=== PATIENT | female | born 1990 | race Caucasian/White ===

== ENCOUNTER 2018-06-28 09:41 | Emergency (ER) | payer OTHER, MEDICAID, SELFPAY ==
[2018-06-28 09:42] VITALS: BP 159/105; PULSE 102; RESP 16; TEMP 36.5; O2SAT 98; BMI 43.5
--- NOTE | 2018-06-28 09:57 | ED.VISSUMM ---
- ER Visit Summary Date of Service: 06/28/18 Chief Complaint: Right flank pain History of Present Illness: The patient is a [address] Cuellar [facility] She is a at 12 weeks 5 days. She reports she has the abrupt onset of right flank pain at 6:00 this morning. Is a sharp pain Zeta 10 severity. It is worsened by nothing and relieved by nothing. She has had nausea without vomiting. No diarrhea. Her last bowel was today. No melena or hematochezia. No dysuria or frequency. No vaginal bleeding or discharge. Physical Examination: Vitals: Stable. Afebrile. General: Well-nourished and well-developed. Head: Normocephalic atraumatic. Neck: Supple, no lymphadenopathy. No JVD. Nontender. Cardiovascular: Regular rate and rhythm. No murmurs. Respiratory: No respiratory distress. Clear to auscultation bilaterally. Abdominal: Soft, nontender, nondistended, normal bowel sounds. No guarding, rebound, or peritoneal signs. Gravid uterus. Back: Nontender. No CVA tenderness. Extremities: Nontender, no edema. Skin: Normal color, no rash. Neurologic: Alert and oriented ?3. Cranial nerves II through XII are intact. Normal strength and sensation. Psych: Normal affect. Test Results: UA has blood, ketones. Micro shows 5-10 white blood cells and 5-10 red blood cells. 1+ bacteria. Emergency Department Course and Treatment: Patient had an IV placed. She was given morphine and Zofran IV. I discussed the options for diagnosis of a kidney stone. Patient is hesitant to have a CT at this time. Treatment Plan: I discussed the patient with Dr. Maradiaga. She will be discharged with instructions to follow-up Dr. Stoll in 1 week if she has not passed the stone. Follow-up Dr. Maradiaga later on this week for repeat examination. She does understand that if she does not pass the stone she can return at any time to obtain a CT. She will be discharged with Percocet and Zofran. Disposition: To home in improved and stable condition. Impression: 1. Clinical right ureterolithiasis. 2. First trimester . This note was generated with 140 Proofation software. It may contain incorrect words, spelling, and punctuation that were not noted in review of the chart prior to signing ED Disposition - Plan for ED Patient: Disposition: Home or Assisted Living Chief Complaint: Flank Pain Instructions: ED Stone Renal W Colic Prescriptions: Oxycodone HCl/Acetaminophen [Percocet 5/325] 1 tablet PO Q6H PRN PRN 5 Days #20 tablet PRN Reason: Pain Ondansetron [Zofran Odt] 4 mg PO Q8H PRN PRN #10 tablet PRN Reason: Nausea Referrals: Palomo Maradiaga [STAFF PHYSICIAN] - 3-5 Days if not improving Gavin Stoll MD [STAFF PHYSICIAN] - 1 Week if not improving
[2018-06-28] MEDS: Ondansetron 4 MG/2 ML Vial IV ×2 (10:12→14:12)
[2018-06-28] MEDS: Morphine 4 MG/ML Syringe IV ×2 (10:12→12:04)
[2018-06-28] MEDS: 0.9% Normal Saline 1,000 ML 250 ML IV (10:12)
[2018-06-28 11:21] LABS: Color, Urine Yellow (Yellow); Glucose, Dipstick Normal (Normal); Ketone-Dipstick 15 mg/dl (Negative); Leukocyte Esterase-Dipstick 25 /ul (Negative); Nitrite-Dipstick Negative (Negative); Occult Blood-Urine 250 /ul (Negative); Protein-Dipstick 30 mg/dl (Negative); Specific Gravity, Urine 1.025 (1.002-1.030); Urine Bilirubin Dipstick Negative (Negative); Urine Clarity Cloudy (Clear); Urine Urobilinogen Normal (Normal)
[2018-06-28 11:28] LABS: Amorphous Sediment 1+; Bacteria 1+ /hpf (None Seen); Mucous, Urine 1+ /hpf (<or=2+); Red Blood Cells-Urine 5-10 SEEN /hpf (0-5); Squamous Epithelial Cells - UA 5-10 SEEN /hpf (5-10); White Blood Cells 0-5 SEEN /hpf (0-5)
[2018-06-28 12:28] VITALS: BP 142/86; PULSE 85; RESP 16; O2SAT 98
[2018-06-28 13:28] VITALS: BP 162/82; PULSE 90; RESP 14; TEMP 37; O2SAT 100; BMI 43.5
--- NOTE | 2018-06-28 13:47 | ED.RN ---
pt left and is back. per dr acevedo only one chart
[2018-06-28] MEDS: HYDROmorphone 1 MG/ML Syringe IV (14:11)
[2018-06-28] MEDS: 0.9% Normal Saline 1,000 ML 999 ML IV (14:12)
[2018-06-28] MEDS: Acetaminophen 500 MG Tablet 1000 MG PO (14:49)
[2018-06-28] MEDS: oxyCODONE 5 MG Tablet 10 MG PO (14:49)
[2018-06-28 15:34] VITALS: BP 150/95; PULSE 85; RESP 18; O2SAT 99
== END 2018-06-28 16:02 | disposition home or self-care (01) ==
PROVIDERS: Emergency Provider Emergency Medicine
DX: O26.831 Pregnancy related renal disease, first trimester (principal); N20.1 Calculus of ureter; Z3A.12 12 weeks gestation of pregnancy; Z87.442 Personal history of urinary calculi
CPT/HCPCS: 81001; 96361; 96374; 96375; 96376; 99285; J7030; A4216; J2405

== ENCOUNTER 2018-12-30 06:50 | Inpatient (IN) | payer MEDICAID, SELFPAY ==
[2018-12-30 06:54] VITALS: BMI 46.0
[2018-12-30 07:57] LABS: Absolute Lymphocyte Count 1.62 X10^3/ul (0.83-4.51); Basophil# 0.02 X10^3/uL; Basophil% 0.2 % (0-1); Eosinophil# 0.04 X10^3/uL; Eosinophils% 0.4 % (0-5); Hematocrit 34.8 % (37-47); Hemoglobin 11.4 g/dl (12.0-15.0); Lymphocyte # 1.62 X10^3/ul (4.0); Lymphocyte % 17.8 % (19-41); Mean Corp Hgb Conc 32.8 g/gl (32-36); Mean Corpuscular Hgb 26.8 pg (27.0-32.0); Mean Corpuscular Volume 81.9 fL (81-99); Mean Platelet Vol. 11.6 fl (6.2-12.0); Monocyte# 0.37 X10^3/uL; Monocyte% 4.1 % (0-10); Neutrophil # 7.02 X10^3/uL (2.7-7.7); Neutrophil % 77.3 % (47-70); Platelet Count 219 K/mm3 (150-450); RBC Distribution Width CV 14.2 % (11.6-14.6); RBC Distribution Width SD 42.5 fl (35.1-43.9); Red Blood Count 4.25 M/mm3 (4.2-5.4); White Blood Count 9.1 K/mm3 (4.4-11.0)
[2018-12-30 07:58] LABS: POSITIVE COUNT NO; POSITIVE DIFFERENTIAL NO; POSITIVE MORPHOLOGY NO
[2018-12-30] MEDS: Lactated Ringers 1,000 ML 50 ML IV ×3 (08:52→20:53)
[2018-12-30] MEDS: Oxytocin 30 units/NS 500 ml 30 UNITS/500 ML IV.SOLN IV (08:53)
[2018-12-30] MEDS: 0.9% Normal Saline 100 ML IV.SOLN. INTRA-UTER (08:56)
--- NOTE | 2018-12-30 13:13 | PCM.HP.OB ---
History Date of Admission: 02/21/17 Final DONI: 01/05/19 Final DONI Source: US <20 weeks Gestational age: 39 Weeks and 1 Days History of this : This is a 28 year-old 3 para 2 at 39 weeks gestation with EDC of 01/05/2019 presents for induction of labor due to being multigravida and an LGA fetus. She denies any vaginal bleeding or leaking of fluid. She has had good movement. Patient has had 2 previous vaginal deliveries and her largest previous vaginal delivery was 8 pounds 14 ounces without significant complications. Her has been otherwise uncomplicated. Allergies No Known Allergies Allergy (Verified 06/28/18 09:42) Home Medications: Home Medications Prenatabs FA 1 tab PO DAILY 12/11/14 Smoking Status: Never smoker Alcohol: None Number of Fetus(es): 1 Heart Tracing: Normal baseline, moderate variability and spontaneous accelerations, category 1 upon admission. TOCO Analysis: Irregular contractions upon admission History Past Pregnancies: Past Pregnancies Delivery Date Name GA/Weeks Outcome Route Weight Infant Gender Labor Length Anesthesia Delivery Location Provider FOB Review of Systems Constitutional: Denies: Anorexia, Chills, Fever Eyes: Denies: Blurred vision Cardiovascular: Reports: Edema. Denies: Chest Pain Respiratory: Denies: Cough, Shortness of Breath Skin: Denies: Rash Hematologic/ Lymphatic: Denies: Easy Bruising, Hx of blood clot Physical Exam General: Alert, Cooperative, No apparent distress Abdomen: Soft, Non-Distended, Gravid, - - large for gestational age Extremities:: Other - 1+edema, no clonus, 1+DTRs Assessment/Plan This is a 28 year-old, 3 para 2 at 39 weeks gestation for induction of labor due to large for gestational age infant. Estimated weight clinically and by ultrasound is less than 5000 g. However we did discuss range of error inherent to these measurements. However, she did have an almost 9 pound infant in the past without complications. Pelvis is clinically adequate to expect vaginal delivery. Benefits and alternatives to induction were discussed with the patient and she desired to proceed. Will proceed with Oneil, Pitocin and artificial rupture membranes of labor. Procedure note: Upon my initial exam, Oneil catheter was placed over a stylette into the cervix under the usual sterile fashion. The balloon was inflated to 30 cc and placement over the internal loss was confirmed. Pitocin was initiated.
[2018-12-30] MEDS: Nalbuphine 10 MG/ML Ampul IV (15:40)
[2018-12-30] MEDS: fentaNYL-bupivacaine (epidural) 100 ML BAG EPIDURAL (17:40)
[2018-12-30] MEDS: Oxytocin 30 units/NS 500 ml 30 UNITS/500 ML IV.SOLN 334 UNITS IV (22:22)
[2018-12-30] MEDS: Oxytocin 30 units/NS 500 ml 30 UNITS/500 ML IV.SOLN 167 UNITS IV (22:52)
--- NOTE | 2018-12-30 22:56 | OP.PCM_ITS ---
Vaginal Delivery Maternal Presentation: Elective Induction Method of Induction: Pitocin, Oneil Bulb, Amniotomy Medical Reason for Induction: - - suspected LGA Amniotic Membrane Rupture Type: Artificial Amniotic Fluid Description: Clear Final DONI: 01/13/19 Final DONI Source: US <20 weeks Gestational age: 38 Weeks and 0 Days Date of Procedure: 12/30/18 Pre-Operative Diagnosis: 39 week multigravida, suspected LGA fetus Post-Operative Diagnosis: same Surgery/ Procedure Performed: Spontaneous Vaginal Delivery Type of Anesthesia: Epidural Description of Procedure: A vigorous male infant was delivered BARBARA over a first-degree perineal laceration. A loose nuchal cord ?1 was easily reduced. The remainder the infant was delivered with maternal pushing and gentle traction only in less than 15 seconds. The Pitocin infusion was initiated for active management of the third stage. The cord was clamped and cut after 1 minute. The was attended to by the waiting nursing staff. The placenta was delivered spontan eously and intact. The cervix and vagina were intact. The first-degree perineal laceration was repaired with 3-0 Vicryl Rapide suture with a figure of 8 suture. Sponge and needle counts were correct. A vaginal sweep was completed by me. Presentation: BARBARA Placental Delivery Description: Spontaneous Placenta Disposition: [facility] Cord Vessel Description: 3 Vessels Nuchal Cord Compression: Without compression Cord Entanglement: Around neck x 1, loose Drain: Oneil to straight drain Estimated Blood Loss: 300 Infant A gender: Male (1 minute): 8 (5 minute): 9 Episiotomy Description: None Laceration: 1st degree - perineal Medications given after delivery: IV Pitocin Complications: None
[2018-12-31] MEDS: Labetalol 100 MG Tablet PO (00:21)
--- NOTE | 2018-12-31 03:09 | NURSING ---
pt voided while taking a shower @ 0115 and states she emptied her bladder
[2018-12-31 03:40] VITALS: BP 123/62; PULSE 97; RESP 18; TEMP 36.8
[2018-12-31] MEDS: Naproxen 250 MG Tablet 500 MG PO (07:33)
--- NOTE | 2018-12-31 07:52 | PCM.PN.OB ---
Subjective: some cramping, worse w/ nursing, average lochia. No other c/o - Physical Exam General: Alert, Cooperative, No apparent distress Vital Signs Temp Pulse Resp BP 98.3 F 97 18 123/62 H 12/31/18 03:40 12/31/18 03:40 12/31/18 03:40 12/31/18 03:40 Oxygen Delivery Method Room Air Weight: 141.4 kg Body Mass Index (BMI) 46.0 Intake and Output for Last 24 Hours 12/29/18 12/30/18 12/31/18 23:59 23:59 23:59 Intake Total 2958 / 2958 Output Total 550 / 550 850 / 850 Balance 2408 / 2408 -850 / -850 Laboratory Tests Past 24 Hrs 12/30/18 12/30/18 07:20 07:20 WBC 9.1 RBC 4.25 Hgb 11.4 L Hct 34.8 L MCV 81.9 MCH 26.8 L MCHC 32.8 RDW 14.2 RDW Differential 42.5 Plt Count 219 MPV 11.6 Immature Gran % (Auto) 0.200 Neut % (Auto) 77.3 H Lymph % (Auto) 17.8 L [place] % (Auto) 4.1 Eos % (Auto) 0.4 Baso % (Auto) 0.2 Absolute Neuts (auto) 7.0 Absolute Lymphs (auto) 1.62 Total Counted Not Reportable Blood Type A POSITIVE Antibody Screen NEGATIVE Medical Necessity - Tobacco Use Smoking Status: Never smoker Assessment/Plan PPD#1 doing well likely d/c home tomorrow
[2018-12-31 08:10] VITALS: BP 132/77; PULSE 96; RESP 16; TEMP 36.6
[2018-12-31 12:00] VITALS: BP 137/69; PULSE 91; RESP 16; TEMP 35.8
[2018-12-31 16:00] VITALS: BP 136/84; PULSE 93; RESP 16; TEMP 36.2
[2018-12-31 20:00] VITALS: BP 135/86; PULSE 90; RESP 16; TEMP 36.8
[2019-01-01 02:00] VITALS: BP 129/74; PULSE 82; RESP 16; TEMP 36.7
[2019-01-01 07:35] VITALS: BP 136/85; PULSE 79; RESP 16; TEMP 36.2
[2019-01-01] MEDS: Senna/Docusate Sodium 1 Tablet PO (09:27)
--- NOTE | 2019-01-01 11:11 | PCM.PN.OB ---
Subjective: Pain well controlled, average lochia, no N/V. Denies RANDOLPH, epigastric pain or visual changes - Physical Exam General: Alert, Cooperative, No apparent distress Abdomen: - - fundus firm, mildly tender, appropriately so Extremities: Edema - 2+, No clonus, 2+ DTRs Vital Signs Temp Pulse Resp BP 97.1 F L 79 16 136/85 H 01/01/19 07:35 01/01/19 07:35 01/01/19 07:35 01/01/19 07:35 Oxygen Delivery Method Room Air Weight: 141.4 kg Body Mass Index (BMI) 46.0 Intake and Output for Last 24 Hours 12/30/18 12/31/18 01/01/19 23:59 23:59 23:59 Intake Total 2958 / 2958 Output Total 550 / 550 950 / 950 Balance 2408 / 2408 -950 / -950 Medical Necessity - Tobacco Use Smoking Status: Never smoker Assessment/Plan day #2 status post spontaneous vaginal delivery of LGA term . is doing well and breast-feeding. Is ready for discharge home today. Patient is doing well. She has had some borderline blood pressures, but no other symptoms of preeclampsia. Blood pressures have not warranted additional therapy since a single dose of labetalol p.o. At this point, I discussed with the patient's symptoms of preeclampsia with severe features and she is to call or return to the hospital for any symptoms or concerns. Patient is comfortable with this. Follow-up in the office in 1 week for blood pressure check and visit or as needed.
--- NOTE | 2019-01-01 11:16 | DCINST_ITS ---
Discharge Diet: No Restrictions Discharge Activity: Return to Normal Activity, May not drive while taking narcotic pain medications., May Shower May resume sexual activity in: 4-6 weeks Additional Activity Instructions:: Nothing in the vagina for 4-6 weeks. You may return to work/school in 6 weeks. Call your doctor if your incision/area has: Continuous Slow Oozing, Sudden Increased Bleeding, Increased Pain/ Swelling, Increased Redness, Foul Smelling Discharge Additional Instructions: If you experience any of the following, contact your healthcare provider. * Bleeding that soaks a pad every hour for 2 hours * Fever 100.4 or higher * Unrelieved incision or abdominal pain * Swelling, redness, discharge or bleeding from your incision or episiotomy site * Your incision begins to separate * Problems urinating (including inability to urinate or burning while urinating). * Visual changes * Severe headache * Flu-like symptoms * Pain or redness in one of both of your breasts * Pain, warmth, tenderness or swelling in your legs, especially the calf area * Frequent nausea and vomiting * Symptoms of depression or anxiety If you experience any of the following, call 911 or go to the nearest Emergency Room. * Chest pain * Problems breathing * Seizure activity * Partial or complete paralysis of a body part, slurred speech, weakness or drooping of the face, or a sudden inability to walk or hold your balance Allergies/Adverse Reactions: Allergies No Known Allergies Allergy (Verified 06/28/18 09:42) Medications to take at Discharge Prenatabs FA 1 tab PO DAILY 12/11/14 Docusate Sodium [Colace] 100 mg PO BID PRN PRN #30 capsule 01/01/19 The following prescriptions were given: Docusate Sodium [Colace] 100 mg PO BID PRN PRN #30 capsule PRN Reason: Constipation Please Follow Up With: Diamante Carmichael MD - [phone] When: Call to make an appointment with your doctor in 1 week and 6 weeks or as needed. Primary Care Physician: Care Physician,No Primary [Primary Care Provider] - Test Results: Test results from this visit will be discussed in further detail at your follow- up appointment, if applicable.
--- NOTE | 2019-01-05 17:04 | NURSING ---
No answer on follow up phone call. Left voice mail.
== END 2019-01-01 11:23 | disposition home or self-care (01) | DRG 807 ==
PROVIDERS: Admitting Provider Obstetrics & Gynecology; Referring Provider Obstetrics & Gynecology; Visit Provider Obstetrics & Gynecology
DX: O36.63X0 Maternal care for excessive fetal growth, third trimester, not applicable or unspecified (principal); Z37.0 Single live birth; O69.81X0 Labor and delivery complicated by cord around neck, without compression, not applicable or unspecified; O70.0 First degree perineal laceration during delivery; Z3A.39 39 weeks gestation of pregnancy; O16.5 Unspecified maternal hypertension, complicating the puerperium
CPT/HCPCS: 59025; 59050; 85025; 86850; 86900; 99218; J7120; G0378

== ENCOUNTER 2020-05-19 14:13 | Observation (INO) | payer OTHER, MEDICAID, SELFPAY ==
[2020-05-19] VITALS (12 sets, daily range): BP systolic 116–159; BP diastolic 71–99; PULSE 75–121; RESP 16–20; TEMP 36.3–37; O2SAT 95–100; BMI 39.1; BMI 38.0; BMI 38.1
--- NOTE | 2020-05-19 14:29 | CT_ITS ---
STUDY: CT ABDOMEN AND PELVIS WITHOUT CONTRAST REASON FOR EXAM: Female, 29 years old. LEFT FLANK PAIN -- HX-KIDNEY STONES RADIATION DOSAGE (If Supplied By Facility): CTDIvol = ( 21.97 ) mGy, DLP = ( 1196.60 ) mGycm TECHNIQUE: Transaxial images were obtained from the dome of the diaphragm to the symphysis pubis without oral contrast, and without intravenous contrast. Sagittal and coronal images were reconstructed. Individualized dose optimization techniques were used for this CT. COMPARISON: None. FINDINGS: Lung bases demonstrate no evidence for consolidative process. No pericardial effusion. Gallbladder is nondistended. No focal hepatic lesions on this noncontrast study. Adrenal glands and pancreas are within normal limits. No discrete hepatic lesions. Moderate left-sided hydronephrosis with an obstructing stone in the left ureteropelvic junction measuring up to 1.3 cm in transverse dimension. There is dilatation of the mid to distal left ureter also seen. Left-sided nephrolithiasis. Right kidney demonstrates no evidence for hydronephrosis. The uterus appears retroverted and prominent in caliber possibly fibroids however not well characterized. Prominent right adnexa. No evidence for acute appendicitis or diverticulitis. Mild degenerative changes at L5-S1 level IMPRESSION: Moderate left-sided hydronephrosis and approximately 1.3 cm stone in the left ureteropelvic junction. Left-sided nephrolithiasis. Left-sided perinephric stranding. No evidence for acute diverticulitis or bowel obstruction. Electronically Signed: Emir Thomas, at 16:26 EDT Tel , Service support , CT/Abdomen/Pelvis without Cont
--- NOTE | 2020-05-19 14:38 | ED.DCSUM_ITS ---
History of Present Illness <Marco Bourgeois - Last Filed: 05/19/20 15:50> Informant: Patient Onset: Today Narrative: 29-year-old female with past medical history of kidney stones x3 presents with left flank pain that started upon awakening this morning around 8 AM. Pain started suddenly and in her left flank/left side. Pain is been coming in waves with associated nausea. She states it feels like prior kidney stones. All her stones passed without intervention in the past. She denies fevers, chills, vomiting, chest pain, cough, diarrhea, hematuria, frequency, or dysuria. <Jesusita Perez - Last Filed: 05/19/20 17:03> Chief Complaint: Flank Pain Past Medical History <Marco Bourgeois - Last Filed: 05/19/20 15:50> Past Medical History: - - kidney stones Smoking Status: Never smoker <Jesusita Perez - Last Filed: 05/19/20 17:03> - Allergies and Home Meds Allergies/Adverse Reactions: Allergies No Known Allergies Allergy (Verified 06/28/18 09:42) Primary Care Physician: Care Physician,No Primary [NON-STAFF] - Review of Systems General: Denies: Chills, Fever, Sweats Eyes: Denies: Visual changes - bilaterally, Diplopia ENT: Denies: Rhinorrhea, Sore throat Cardiovascular: Denies: Chest pain, Palpitations Respiratory: Denies: Dyspnea, Cough, Dyspnea on exertion Gastrointestinal: Reports: Abdominal pain, Nausea. Denies: Vomiting, Diarrhea, Melena, Hematochezia Genitourinary: Denies: Dysuria, Hematuria, Frequency Musculoskeletal: Denies: Back pain, Extremity Pain Skin: Denies: Rash, Wounds Neurological: Denies: Headache, Weakness, Numbness <Jesusita Perez - Last Filed: 05/19/20 17:03> Physical Exam Vital Signs/Narrative: Vital Signs Temp Pulse Resp BP Pulse Ox 05/19/20 14:15 97.3 F L 121 H 18 153/99 H 98 <Marco Bourgeois - Last Filed: 05/19/20 15:50> Vital Signs/Narrative: Vital Signs Temp Pulse Resp BP Pulse Ox 05/19/20 14:15 97.3 F L 121 H 18 153/99 H 98 General: Well nourished, Well developed, Acute Distress Head: Normocephalic, Atraumatic Eyes: EOMI ENT: Moist mucous membranes, No rhinorrhea Neck: Supple, Nontender Cardiovascular: Regular rate, Regular rhythm, No murmurs Respiratory: No distress, CTA bilaterally, Chest nontender Abdomen: Soft, Nontender, Nondistended, Normal bowel sounds Back: Nontender, Normal Inspection. Negative for: CVA tenderness Extremities: No edema Skin: Normal color, No rash Neurological: Alert, Oriented x3, Cranial nerves II-XII grossly intact <Jesusita Perez - Last Filed: 05/19/20 17:03> Diagnostic/Tx/Re-eval - Medical Decision Making Patient was seen with Jesusita the physician certified nursing assistant instructor, right flank pain agree with history and physical as above, patient has a very vague mild pain to the right flank abdomen soft nontender the rest exam is unremarkable ED evaluation CT plan pain management see the chart for full details <Marco Bourgeois - Last Filed: 05/19/20 15:50> Clinical Impression(s) from Imaging Studies Abdomen/Pelvis CT 05/19/20 14:29 Laboratory Data 05/19/20 05/19/20 05/19/20 14:40 14:40 14:40 WBC Cancelled Corrected WBC Cancelled RBC Cancelled Hgb Cancelled Hct Cancelled MCV Cancelled MCH Cancelled MCHC Cancelled RDW Std Deviation Cancelled RDW Coeff of Prakash Cancelled Plt Count Cancelled MPV Cancelled Immature Gran % (Auto) Cancelled Neut % (Auto) Cancelled Lymph % (Auto) Cancelled [place] % (Auto) Cancelled Eos % (Auto) Cancelled Baso % (Auto) Cancelled Absolute Neuts (auto) Cancelled Absolute Lymphs (auto) Cancelled Total Counted Cancelled Neutrophils % (Manual) Cancelled Band Neutrophils % Cancelled Lymphocytes % (Manual) Cancelled Monocytes % (Manual) Cancelled Eosinophils % (Manual) Cancelled Basophils % (Manual) Cancelled Metamyelocytes % Cancelled Myelocytes % Cancelled Promyelocytes % Cancelled Blast Cells % Cancelled Plasma Cell % (Manual) Cancelled Other Cells % Cancelled Nucleated RBC % Cancelled Nucleated RBCs/100 WBC Cancelled Differential Comment Cancelled Diff Path Review Cancelled Hypersegmented Neuts Cancelled Atypical Lymphocytes Cancelled Reactive Lymphocytes Cancelled Smudge Cells Cancelled Toxic Granulation Cancelled Toxic Vacuolation Cancelled Dohle Bodies Cancelled Renita Rods Cancelled Platelet Estimate Cancelled Plt Morphology Comment Cancelled RBC Morphology Cancelled Polychromasia Cancelled Hypochromasia Cancelled Poikilocytosis Cancelled Basophilic Stippling Cancelled Anisocytosis Cancelled Microcytosis Cancelled Macrocytosis Cancelled Spherocytes Cancelled Sickle Cells Cancelled Target Cells Cancelled Tear Drop Cells Cancelled Ovalocytes Cancelled Stomatocytes Cancelled [place] Bodies Cancelled Darlin Cells Cancelled Bite Cells Cancelled Crenated Cell Cancelled Acanthocytes (Spur) Cancelled Rouleaux Cancelled Schistocytes Cancelled Sodium 139 Potassium 3.9 Chloride 107 Carbon Dioxide 23.0 Anion Gap 9 BUN 15 Creatinine 1.09 H Estim Creat Clear Calc 81.02 Est GFR (MDRD) Af Amer 77 Est GFR (MDRD) Non-Af 64 BUN/Creatinine Ratio 13.8 Glucose 98 Calcium 9.5 Total Bilirubin 0.60 AST 21 ALT 24 Alkaline Phosphatase 68 Total Protein 7.3 Albumin 4.1 Globulin 3.2 Albumin/Globulin Ratio 1.3 Serum , Qual NEGATIVE Urine Color Urine Clarity Urine pH Ur Specific [place] Urine Protein Urine Glucose (UA) Urine Ketones Urine Occult Blood Urine Nitrite Urine Bilirubin Urine Urobilinogen Ur Leukocyte Esterase Urine RBC Urine WBC Ur Squamous Epith Cells Urine Bacteria Urine Mucus 05/19/20 05/19/20 15:05 15:12 WBC 9.5 Corrected WBC RBC 4.91 Hgb 13.5 Hct 42.0 MCV 85.5 MCH 27.5 MCHC 32.1 RDW Std Deviation 37.2 RDW Coeff of Prakash 11.9 Plt Count 201 MPV 13.0 H Immature Gran % (Auto) 0.200 Neut % (Auto) 81.6 H Lymph % (Auto) 13.2 L [place] % (Auto) 4.5 Eos % (Auto) 0.1 Baso % (Auto) 0.4 Absolute Neuts (auto) 7.7 Absolute Lymphs (auto) 1.25 Total Counted Neutrophils % (Manual) Band Neutrophils % Lymphocytes % (Manual) Monocytes % (Manual) Eosinophils % (Manual) Basophils % (Manual) Metamyelocytes % Myelocytes % Promyelocytes % Blast Cells % Plasma Cell % (Manual) Other Cells % Nucleated RBC % 0 Nucleated RBCs/100 WBC Differential Comment Diff Path Review Hypersegmented Neuts Atypical Lymphocytes Reactive Lymphocytes Smudge Cells Toxic Granulation Toxic Vacuolation Dohle Bodies Renita Rods Platelet Estimate Plt Morphology Comment RBC Morphology Polychromasia Hypochromasia Poikilocytosis Basophilic Stippling Anisocytosis Microcytosis Macrocytosis Spherocytes Sickle Cells Target Cells Tear Drop Cells Ovalocytes Stomatocytes [place] Bodies Darlin Cells Bite Cells Crenated Cell Acanthocytes (Spur) Rouleaux Schistocytes Sodium Potassium Chloride Carbon Dioxide Anion Gap BUN Creatinine Estim Creat Clear Calc Est GFR (MDRD) Af Amer Est GFR (MDRD) Non-Af BUN/Creatinine Ratio Glucose Calcium Total Bilirubin AST ALT Alkaline Phosphatase Total Protein Albumin Globulin Albumin/Globulin Ratio Serum , Qual Urine Color Straw Urine Clarity Clear Urine pH 6.5 Ur Specific [place] 1.005 Urine Protein Negative Urine Glucose (UA) Normal Urine Ketones 15 H Urine Occult Blood 50 H Urine Nitrite Negative Urine Bilirubin Negative Urine Urobilinogen Normal Ur Leukocyte Esterase Negative Urine RBC 0-5 SEEN Urine WBC 0 SEEN Ur Squamous Epith Cells 0 SEEN Urine Bacteria 0 SEEN Urine Mucus 0 SEEN - Medical Decision Making Patient presented with left flank pain. She appears in mild distress but nontoxic. Vital signs show tachycardia of*, normal. She has a normal general medical exam and no CVA or abdominal tenderness. Labs were taken and show no leukocytosis. Urine shows no infectious process. CT shows left sided 1.3 cm stone at the UPJ junction with moderate hydronephrosis. She is feeling improved after morphine, Toradol, Zofran, and fluids. Case was discussed with urology. Due to size of stone, patient will be admitted for further evaluation and treatment. She was agreeable with this plan and transferred to the floor in stable condition. <Jesusita Perez - Last Filed: 05/19/20 17:03> ED Disposition <Marco Bourgeois - Last Filed: 05/19/20 15:50> <Jesusita Perez - Last Filed: 05/19/20 17:03> - Plan for ED Patient: Disposition: Acute Care [facility] Diagnosis: Left renal stone, Hydronephrosis concurrent with and due to calculi of kidney and ureter Referrals: Care Physician,No Primary [NON-STAFF] -
[2020-05-19 15:03] LABS: Internal QC Validated? YES +Cl - CLEAR BKGD; Pregnancy, Serum, hCG Quali. NEGATIVE Negative
[2020-05-19] MEDS: 0.9% Normal Saline 1,000 ML 125 ML IV (15:03)
[2020-05-19] MEDS: Ondansetron 4 MG/2 ML Vial IV (15:03)
[2020-05-19] MEDS: Ketorolac 30 MG/ML Syringe IV (15:05)
[2020-05-19] MEDS: morphine 8 MG/ML Syringe IV (15:06)
[2020-05-19 15:10] LABS: Bacteria 0 SEEN /hpf (None Seen); Mucous, Urine 0 SEEN /hpf (<or=2+); Squamous Epithelial Cells - UA 0 SEEN /hpf (5-10); White Blood Cells 0 SEEN /hpf (0-5)
[2020-05-19 15:18] LABS: Color, Urine Straw (Yellow); Glucose, Dipstick Normal (Normal); Ketone-Dipstick 15 mg/dl (Negative); Leukocyte Esterase-Dipstick Negative /ul (Negative); Nitrite-Dipstick Negative (Negative); Occult Blood-Urine 50 /ul (Negative); Protein-Dipstick Negative (Negative); Specific Gravity, Urine 1.005 (1.002-1.030); Urine Bilirubin Dipstick Negative (Negative); Urine Clarity Clear (Clear); Urine Urobilinogen Normal (Normal); Urine pH 6.5 (5.0 - 8.0)
[2020-05-19 15:21] LABS: Absolute Lymphocyte Count 1.25 X10^3/uL (0.83-4.51); Absolute Neutrophil Count 7.7 X10^3/uL (2.0-7.7); Basophil# 0.04 X10^3/uL; Basophil% 0.4 % (0-1); Eosinophil# 0.01 X10^3/uL; Eosinophils% 0.1 % (0-5); Hemoglobin 13.5 g/dL (12.0-15.0); Lymphocyte # 1.25 X10^3/ul (4.0); Lymphocyte % 13.2 % (19-41); Mean Corp Hgb Conc 32.1 g/dL (32-36); Mean Corpuscular Hgb 27.5 pg (27.0-32.0); Mean Corpuscular Volume 85.5 fL (81-99); Monocyte# 0.43 X10^3/uL; Monocyte% 4.5 % (0-10); NRBC Flagged by Analyzer 0 % (0-5); Neutrophil # 7.72 X10^3/uL (2.7-7.7); Neutrophil % 81.6 % (47-70); Platelet Count 201 K/mm3 (150-450); RBC Distribution Width CV 11.9 % (11.6-14.6); RBC Distribution Width SD 37.2 fl (35.1-43.9); Red Blood Count 4.91 M/mm3 (4.2-5.4); White Blood Count 9.5 K/mm3 (4.4-11.0)
[2020-05-19 15:35] LABS: Red Blood Cells-Urine 0-5 SEEN /hpf (0-5)
[2020-05-19 15:36] LABS: ALB/GLOB Ratio 1.3 RATIO (0.9-2.4); AST(SGOT) 21 U/L (15-37); Alanine Aminotransfer ALT/SGPT 24 U/L (13-56); Albumin, Serum 4.1 g/dL (3.2-5.0); Alkaline Phosphatase 68 U/L (45-117); Anion Gap 9 (5-15); BUN 15 mg/dL (7-18); BUN/Creat Ratio 13.8 RATIO (10-20); Calcium,Total 9.5 mg/dL (8.5-10.1); Chloride 107 mmol/L (98-107); Creatinine, Serum 1.09 mg/dL (0.55-1.02); EST Glomerular Filtration Rate 64 mL/min (>60); Est Glom Filt Rate - Afr Amer 77 mL/min (>60); Estimated Creatinine Clearance 81.02 ml/min; Globulin 3.2 g/dL (2.2-4.2); Glucose 98 mg/dL (74-106); Potassium 3.9 mmol/L (3.5-5.1); Protein, Total 7.3 g/dL (6.4-8.2); Sodium Level 139 mmol/L (136-145)
[2020-05-19] MEDS: Morphine 4 MG/ML Syringe IV (18:48)
--- NOTE | 2020-05-19 19:52 | HP.PCM_ITS ---
Problem List (1) Left renal stone Status: Acute History of Present Illness Date of Admission: 05/19/20 Chief Complaint: Left obstructing kidney stone The patient is a 29 year old female who presented to the hospital with a large stone in the left UPJ causing obstruction and hydronephrosis she had severe pain in the emergency room required 15 to 30 mg of Toradol and also 8 mg of morphine was admitted to the floor still required more morphine for pain control at this point we plan to place a stent to alleviate her obstruction. Past Medical History Allergies No Known Allergies Allergy (Verified 06/28/18 09:42) Home Medications: Ambulatory Orders Medication Instructions Recorded Docusate Sodium [Colace] 100 mg PO BID PRN PRN #30 capsule 01/01/19 Surgical History: no surgical history Smoking Status: Never smoker Review of Systems Constitutional: Denies: Chills, Fever, Weight Change HEENT: Denies: Head Aches, Sinus Congestion, Sinus Drainage Cardiovascular: Denies: Chest Pain, Palpitations Respiratory: Denies: Cough, Shortness of breath at rest, Sputum production Gastrointestinal: Reports: Abdominal Pain. Denies: Nausea, Vomiting Genitourinary: Denies: Dysuria Musculoskeletal: Denies: Joint Pain, Joint Tenderness Skin: Denies: Rash, Wounds Neurological: Denies: Numbness, Tingling, Focal weakness Psychiatric: Denies: Anxiety, Depression, Homicidal Ideations, Suicidal Ideations Hematologic/ Lymphatic: Denies: Easy Bruising, Easy Bleeding VTE Information - Inpt Only VTE Present on Admission: No Patient Problems: Active and Suspected Problems Left renal stone (Acute) Hydronephrosis concurrent with and due to calculi of kidney and ureter (Acute) - Physical Exam Vitals/I&O's: Vital Signs Temp Pulse Resp BP Pulse Ox 98.4 F 86 16 159/91 H 98 05/19/20 18:06 05/19/20 18:06 05/19/20 18:06 05/19/20 18:06 05/19/20 18:06 Oxygen Delivery Method Room Air Weight: 116.9 kg Body Mass Index (BMI) 38.0 General: Alert, Oriented x3, Cooperative HEENT: Atraumatic, PERRLA, EOMI, Normocephalic Neck: Supple, No JVD, Negative Carotid Bruits Lungs: Clear to auscultation, Normal air movement Cardiovascular: Regular rate, No murmurs Abdomen: Bowel Sounds Present, Soft, Non Tender Extremities: No edema, Capillary Refill Less than 3 Seconds Skin: No rashes, No breakdown Musculoskeletal: No Tenderness to Palpation of Joints or Extremities Neurological: Cranial nerves II-XII grossly intact Psych/Mental Status: Normal Affect, Appropriate Laboratory Results 05/19/20 14:40: WBC Cancelled, Corrected WBC Cancelled, RBC Cancelled, Hgb Cancelled, Hct Cancelled, MCV Cancelled, MCH Cancelled, MCHC Cancelled, RDW Std Deviation Cancelled, RDW Coeff of Prakash Cancelled, Plt Count Cancelled, MPV Cancelled, Immature Gran % (Auto) Cancelled, Neut % (Auto) Cancelled, Lymph % (Auto) Cancelled, [place] % (Auto) Cancelled, Eos % (Auto) Cancelled, Baso % (Auto) Cancelled, Absolute Neuts (auto) Cancelled, Absolute Lymphs (auto) Cancelled, Total Counted Cancelled, Neutrophils % (Manual) Cancelled, Band Neutrophils % Cancelled, Lymphocytes % (Manual) Cancelled, Monocytes % (Manual) Cancelled, Eosinophils % (Manual) Cancelled, Basophils % (Manual) Cancelled, Metamyelocytes % Cancelled, Myelocytes % Cancelled, Promyelocytes % Cancelled, Blast Cells % Cancelled, Plasma Cell % (Manual) Cancelled, Other Cells % Cancelled, Nucleated RBC % Cancelled, Nucleated RBCs/100 WBC Cancelled, Differential Comment Cancelled, Diff Path Review Cancelled, Hypersegmented Neuts Cancelled, Atypical Lymphocytes Cancelled, Reactive Lymphocytes Cancelled, Smudge Cells Cancelled, Toxic Granulation Cancelled, Toxic Vacuolation Cancelled, Dohle Bodies Cancell ed, Renita Rods Cancelled, Platelet Estimate Cancelled, Plt Morphology Comment Cancelled, RBC Morphology Cancelled, Polychromasia Cancelled, Hypochromasia Cancelled, Poikilocytosis Cancelled, Basophilic Stippling Cancelled, Anisocytosis Cancelled, Microcytosis Cancelled, Macrocytosis Cancelled, Spherocytes Cancelled, Sickle Cells Cancelled, Target Cells Cancelled, Tear Drop Cells Cancelled, Ovalocytes Cancelled, Stomatocytes Cancelled, [place] Bodies Cancelled, [place] Cells Cancelled, Bite Cells Cancelled, Crenated Cell Cancelled, Acanthocytes (Spur) Cancelled, Rouleaux Cancelled, Schistocytes Cancelled 05/19/20 14:40: Sodium 139, Potassium 3.9, Chloride 107, Carbon Dioxide 23.0, Anion Gap 9, BUN 15, Creatinine 1.09 H, Estim Creat Clear Calc 81.02, Est GFR (MDRD) Af Amer 77, Est GFR (MDRD) Non-Af 64, BUN/Creatinine Ratio 13.8, Glucose 98, Calcium 9.5, Total Bilirubin 0.60, AST 21, ALT 24, Alkaline Phosphatase 68, Total Protein 7.3, Albumin 4.1, Globulin 3.2, Albumin/Globulin Ratio 1.3 05/19/20 14:40: Serum , Qual NEGATIVE 05/19/20 15:05: Urine Color Straw, Urine Clarity Clear, Urine pH 6.5, Ur Specific [address] 1.005, Urine Protein Negative, Urine Glucose (UA) Normal, Urine Ketones 15 H, Urine Occult Blood 50 H, Urine Nitrite Negative, Urine Bilirubin Negative, Urine Urobilinogen Normal, Ur Leukocyte Esterase Negative, Urine RBC 0-5 SEEN, Urine WBC 0 SEEN, Ur Squamous Epith Cells 0 SEEN, Urine Bacteria 0 SEEN, Urine Mucus 0 SEEN 05/19/20 15:12: WBC 9.5, RBC 4.91, Hgb 13.5, Hct 42.0, MCV 85.5, MCH 27.5, MCHC 32.1, RDW Std Deviation 37.2, RDW Coeff of Prakash 11.9, Plt Count 201, MPV 13.0 H, Immature Gran % (Auto) 0.200, Neut % (Auto) 81.6 H, Lymph % (Auto) 13.2 L, [place] % (Auto) 4.5, Eos % (Auto) 0.1, Baso % (Auto) 0.4, Absolute Neuts (auto) 7.7, Absolute Lymphs (auto) 1.25, Nucleated RBC % 0 Current Medications Sodium Chloride () 1,000 mls @ 125 mls/hr IV .Q8H [facility] Last Admin: 05/19/20 15:03 Dose: 125 mls/hr Documented by: Morphine Sulfate () 4 mg IV Q3H PRN PRN PRN Reason: Pain Score 1-10 Last Admin: 05/19/20 18:48 Dose: 4 mg Documented by: Sodium Chloride () 10 - 40 ml IV UD PRN PRN Reason: SALINE FLUSH Assessment/Plan All Active Problems Left renal stone (Acute) Hydronephrosis concurrent with and due to calculi of kidney and ureter (Acute) 29-year-old female with obstructing stone in the proximal left ureter plan for cystoscopy stent placement tonight discharge in the morning. Then we will set her up for treatment of the stone later date.
--- NOTE | 2020-05-19 20:00 | DCINST_ITS ---
Discharge Diet: No Restrictions, Light diet - advance as tolerated Discharge Activity: Return to Normal Activity, May Not Drive - for 2 days. Additional Activity Instructions:: Please be aware that pain medications may cause nausea. You should typically eat light foods as you take your pain medication. Pain medication may cause constipation, if this is a problem for you, please discuss with your doctor. Allergies/Adverse Reactions: Allergies No Known Allergies Allergy (Verified 06/28/18 09:42) Medications to take at Discharge Docusate Sodium [Colace] 100 mg PO BID PRN PRN #30 capsule 01/01/19 Ciprofloxacin [Cipro] 500 mg PO BID #6 tab 05/19/20 Hydrocodone/Acetaminophen [[place] 5-325 Tablet] 1 each PO Q4H PRN PRN 7 Days #20 tablet 05/19/20 The following prescriptions were given: Ciprofloxacin [Cipro] 500 mg PO BID #6 tab Transmission Status: Pending to [facility] Hydrocodone/Acetaminophen [[place] 5-325 Tablet] 1 each PO Q4H PRN PRN 7 Days #20 tablet PRN Reason: Pain Score 1-10/10 Transmission Status: [facility] to [facility] Primary Care Physician: Care Physician,No Primary [NON-STAFF] - Test Results: Test results from this visit will be discussed in further detail at your follow- up appointment, if applicable. Please Follow Up With: Gavin Stoll MD - [phone] When: call office to set up Surgery
[2020-05-19] MEDS: Cefazolin 2 GM in 0.9% Normal Saline 100 ML IV (20:30)
[2020-05-19] MEDS: Lidocaine Jelly 2% 20 ML Syringe (URO-JET) 20 APPLIC (20:38)
--- NOTE | 2020-05-19 20:47 | OP.PCM_ITS ---
Problem List (1) Left renal stone Status: Acute Report of Operation Date of Procedure: 05/19/20 Pre-Operative Diagnosis: Left obstructing ureteral calculi Post-Operative Diagnosis: Same Surgery/Procedure Performed:: Cystoscopy, left retrograde pyelogram, interpretation of fluoroscopic images left stent placement Description of Surgical Findings:: 29-year-old female taken back to the operating room after smooth induction of general anesthesia went into the bladder the 21 [place] rigid cystourethroscope cannulated the left ureteral orifice with a Glidewire advanced a wire up into the kidney once we confirmed that the wire was passed the kidney advanced a stent push the stent over the wire once the stent was in good position over the wire and then pulled the wire and the stent: The kidney bladder good position then we performed a retrograde pyelogram made sure that the stent was in the proper position bladder was drained and the patient's anesthetic is currently being reversed she will go home tomorrow morning plan to set up for shockwave lithotripsy later this week. Type of Anesthesia:: General Drains: stent left - Admit VTE Documentation VTE Present on Admission: No VTE Mechan Device Prophylaxis: SCD's
[2020-05-19] MEDS: 0.9% Normal Saline 1,000 ML 75 ML IV (22:00)
[2020-05-20] MEDS: 0.9% Normal Saline 1,000 ML 125 ML IV (01:11)
[2020-05-20 03:58] VITALS: BP 136/88; PULSE 76; RESP 16; TEMP 36.7; O2SAT 98
[2020-05-20 08:20] VITALS: BP 136/76; PULSE 91; RESP 16; TEMP 36.4; O2SAT 99
== END 2020-05-20 09:11 | disposition home or self-care (01) ==
LOC: ED 17:04 → MS3 19:55
PROVIDERS: Emergency Medicine; Admitting Provider Urology; Emergency Provider Physician Assistant; PCP Family Medicine; Visit Provider Urology
PROC: (CPT 52332; principal; 2020-05-19 20:30)
DX: N13.2 Hydronephrosis with renal and ureteral calculous obstruction (principal); Z87.442 Personal history of urinary calculi
CPT/HCPCS: 52332; 36415; 74176; 76000; 80053; 81001; 84703; 85025; 96361; 96374; 96375; 96376; 99218; 99285; J7030; C1769; C2617; G0378; J2405

== ENCOUNTER 2020-05-22 12:28 | Day surgery (SDC) | payer OTHER, MEDICAID, SELFPAY ==
[2020-05-19 20:00] VITALS: BMI 38.0
[2020-05-22 13:26] VITALS: BP 133/92; PULSE 79; RESP 16; TEMP 37.3; O2SAT 98; BMI 39.9
[2020-05-22 13:42] LABS: Internal QC Validated? YES +Cl - CLEAR BKGD; Pregnancy, Urine Negative Negative
[2020-05-22] MEDS: Lactated Ringers 1,000 ML 100 ML IV (13:43)
--- NOTE | 2020-05-22 16:07 | HP.PCM_ITS ---
Problem List (1) Left renal stone Status: Acute History of Present Illness Date of Admission: 05/22/20 Chief Complaint: Left proximal obstructing stone status post stent The patient is a 29 year old female who presented this weekend with a stone blocking her left kidney she underwent cystoscopy and stent placement and now presents for shockwave lithotripsy. Past Medical History Allergies No Known Allergies Allergy (Verified 05/22/20 13:24) Home Medications: Ambulatory Orders Medication Instructions Recorded Docusate Sodium [Colace] 100 mg PO BID PRN PRN #30 capsule 01/01/19 Ciprofloxacin [Cipro] 500 mg PO BID #6 tab 05/19/20 Hydrocodone/Acetaminophen [[place] 1 ea PO Q4H PRN PRN 7 Days #20 tab 05/19/20 5-325 Tablet] Phentermine HCl [Adipex-P] 37.5 mg PO DAILY 05/21/20 Surgical History: no surgical history Smoking Status: Never smoker Tobacco Use: Non-smoker Review of Systems Constitutional: Denies: Chills, Fever, Weight Change HEENT: Denies: Head Aches, Sinus Congestion, Sinus Drainage Cardiovascular: Denies: Chest Pain, Palpitations Respiratory: Denies: Cough, Shortness of breath at rest, Sputum production Gastrointestinal: Denies: Abdominal Pain, Nausea, Vomiting Genitourinary: Denies: Dysuria Musculoskeletal: Denies: Joint Pain, Joint Tenderness Skin: Denies: Rash, Wounds Neurological: Denies: Numbness, Tingling, Focal weakness Psychiatric: Denies: Anxiety, Depression, Homicidal Ideations, Suicidal Ideations Hematologic/ Lymphatic: Denies: Easy Bruising, Easy Bleeding VTE Information - Inpt Only VTE Present on Admission: No VTE Mechan Device Prophylaxis: SCD's - Physical Exam Vitals/I&O's: Vital Signs Temp Pulse Resp BP Pulse Ox 99.2 F H 79 16 133/92 H 98 05/22/20 13:26 05/22/20 13:26 05/22/20 13:26 05/22/20 13:26 05/22/20 13:26 Oxygen Delivery Method Room Air Weight: 122.5 kg Body Mass Index (BMI) 39.9 General: Alert, Oriented x3, Cooperative HEENT: Atraumatic, PERRLA, EOMI, Normocephalic Neck: Supple, No JVD, Negative Carotid Bruits Lungs: Clear to auscultation, Normal air movement Cardiovascular: Regular rate, No murmurs Abdomen: Bowel Sounds Present, Soft, Non Tender Extremities: No edema, Capillary Refill Less than 3 Seconds Skin: No rashes, No breakdown Musculoskeletal: No Tenderness to Palpation of Joints or Extremities Neurological: Cranial nerves II-XII grossly intact Psych/Mental Status: Normal Affect, Appropriate Laboratory Results 05/22/20 13:31: Urine Test Negative Current Medications Lactated Ringer's () 1,000 mls @ 100 mls/hr IV .Q10H [facility] Last Admin: 05/22/20 13:43 Dose: 100 mls/hr Documented by: Assessment/Plan All Active Problems Left renal stone (Acute) Hydronephrosis concurrent with and due to calculi of kidney and ureter (Acute) Plan to proceed with shockwave lithotripsy the patient was counseled regarding the options of treatment including ureteroscopy laser percutaneous procedures she understands is possible she may need more than one procedure in order to treat the stone that she may need another procedure if the stone does not break up.
--- NOTE | 2020-05-22 16:09 | DCINST_ITS ---
Discharge Diet: No Restrictions, Light diet - advance as tolerated Discharge Activity: Return to Normal Activity, May Not Drive - for 2 days. Additional Activity Instructions:: Please be aware that pain medications may cause nausea. You should typically eat light foods as you take your pain medication. Pain medication may cause constipation, if this is a problem for you, please discuss with your doctor. Instructions: Shock Wave Lithotripsy Allergies/Adverse Reactions: Allergies No Known Allergies Allergy (Verified 05/22/20 13:24) Medications to take at Discharge Docusate Sodium [Colace] 100 mg PO BID PRN PRN #30 capsule 01/01/19 Ciprofloxacin [Cipro] 500 mg PO BID #6 tab 05/19/20 Hydrocodone/Acetaminophen [[place] 5-325 Tablet] 1 ea PO Q4H PRN PRN 7 Days #20 tab 05/19/20 Phentermine HCl [Adipex-P] 37.5 mg PO DAILY 05/21/20 Primary Care Physician: Dirk Albright MD [Primary Care Provider] - Test Results: Test results from this visit will be discussed in further detail at your follow- up appointment, if applicable. Please Follow Up With: Gavin Stoll MD When: in 2 weeks, please call to make an appointment.
--- NOTE | 2020-05-22 16:51 | PCM.OPRPT ---
Problem List (1) Left renal stone Status: Acute Report of Operation Date of Procedure: 05/22/20 Pre-Operative Diagnosis: Left proximal ureteral calculi status post stent Post-Operative Diagnosis: Same Surgery/Procedure Performed:: Left extracorporeal shockwave lithotripsy Description of Surgical Findings:: 29-year-old female who presented to the hospital obstructing stone she underwent cystoscopy and left stent placement she now presents to the outpatient for treatment of the stone with shockwave lithotripsy. She is taken back to the operating room after smooth induction of general anesthesia she was placed in supine position on the lithotripter table we then used fluoroscopy and triangulation technique to locate the stone and then the stone was put the F2 focal point of the lithotripter machine we then proceeded with shockwave lithotripsy delivering a total of 3000 shockwaves to the stone at a rate of 90/min increase in the power from 5 to 7 kV at the end of the treatment cycle the stone it broken up completely appear to be a successful fragmentation. Patient anesthetic is being reversed plan to see her back next week for a KUB and will plan to remove the stent next week in the office. Type of Anesthesia:: General Drains: stent in place - Admit VTE Documentation VTE Present on Admission: No VTE Mechan Device Prophylaxis: SCD's
[2020-05-22 16:57] VITALS: BP 113/78; BP 133/92; PULSE 80; RESP 16; TEMP 36.9; O2SAT 98
[2020-05-22 17:00] VITALS: BP 122/80; BP 133/92; PULSE 73; RESP 16; O2SAT 100
[2020-05-22 17:15] VITALS: BP 119/71; BP 133/92; PULSE 69; RESP 16; O2SAT 100
[2020-05-22] MEDS: Ketorolac 15 MG/ML Vial IV (17:27)
[2020-05-22 17:30] VITALS: BP 133/88; BP 133/92; PULSE 84; RESP 16; TEMP 36.7; O2SAT 100
[2020-05-22 18:52] VITALS: BP 132/97; BP 133/92; PULSE 89; RESP 18; TEMP 36.9; O2SAT 100
== END 2020-05-22 19:05 | disposition home or self-care (01) ==
LOC: SDC 12:29 → AC 12:30
PROVIDERS: Anesthesiology; PCP Family Medicine; Referring Provider Urology; Visit Provider Urology
PROC: (CPT 50590; principal; 2020-05-22 14:25)
DX: N13.2 Hydronephrosis with renal and ureteral calculous obstruction (principal)
CPT/HCPCS: 50590; 81025; J7120; J2405

== ENCOUNTER → 2020-05-28 09:17 | Outpatient (CLI) | payer OTHER, MEDICAID, SELFPAY ==
[2020-05-22 13:26] VITALS: BMI 39.9
--- NOTE | 2020-05-28 09:19 | RAD_ITS ---
STUDY: X-RAY - ABDOMEN/PELVIS REASON FOR EXAM: Female, 29 years old. kidney stone TECHNIQUE: Two AP supine views of the abdomen and pelvis. COMPARISON: CT 05/19/2020 FINDINGS: Normal visualized lung bases. There is an unremarkable bowel gas pattern. There is no demonstrated free abdominal air. Left transureteral stent. Bilateral nephrolithiasis. No ureter calculi are visible. Normal soft tissue structures. Normal visualized osseous structures. RAD/Abdomen Single View IMPRESSION: Left transureteral stent. Bilateral nephrolithiasis. No ureter calculi are visible. Electronically Signed: Heber Bhat MD at 23:13 EDT Tel , Service support ,
== END ==
PROVIDERS: PCP Family Medicine; Visit Provider Urology
DX: N20.0 Calculus of kidney (principal)
CPT/HCPCS: 74018

== ENCOUNTER 2020-05-29 09:51 | Day surgery (SDC) | payer OTHER, MEDICAID, SELFPAY ==
[2020-05-29] VITALS (10 sets, daily range): BP systolic 121–141; BP diastolic 73–88; PULSE 76–94; RESP 16; TEMP 36.7–37.2; O2SAT 100; BMI 38.8
[2020-05-29 10:31] LABS: Internal QC Validated? YES +Cl - CLEAR BKGD; Pregnancy, Urine Negative Negative
[2020-05-29] MEDS: Lactated Ringers 1,000 ML 100 ML IV ×2 (10:38→12:12)
[2020-05-29] MEDS: Cefazolin 2 GM in 0.9% Normal Saline 100 ML IV (11:20)
--- NOTE | 2020-05-29 11:57 | PCM.HP.STD ---
History of Present Illness Date of Admission: 05/29/20 Chief Complaint: Status post left ESWL and stent to the pristine stent The patient is a 29 year old female who underwent shockwave lithotripsy in the office try to get the stent out however the stent had migrated up into the ureter so was not able to extract the stents were taken her surgery today to remove the stent. Past Medical History Allergies No Known Allergies Allergy (Verified 05/29/20 10:16) Home Medications: Ambulatory Orders Medication Instructions Recorded Phentermine HCl [Adipex-P] 37.5 mg PO DAILY 05/21/20 Ciprofloxacin [Cipro] 500 mg PO BID #6 tab 05/29/20 Ibuprofen 600 mg PO Q6H PRN PRN #20 tab 05/29/20 Surgical History: no surgical history Smoking Status: Never smoker Tobacco Use: Non-smoker Review of Systems Constitutional: Denies: Chills, Fever, Weight Change HEENT: Denies: Head Aches, Sinus Congestion, Sinus Drainage Cardiovascular: Denies: Chest Pain, Palpitations Respiratory: Denies: Cough, Shortness of breath at rest, Sputum production Gastrointestinal: Denies: Abdominal Pain, Nausea, Vomiting Genitourinary: Denies: Dysuria Musculoskeletal: Denies: Joint Pain, Joint Tenderness Skin: Denies: Rash, Wounds Neurological: Denies: Numbness, Tingling, Focal weakness Psychiatric: Denies: Anxiety, Depression, Homicidal Ideations, Suicidal Ideations Hematologic/ Lymphatic: Denies: Easy Bruising, Easy Bleeding VTE Information - Inpt Only VTE Present on Admission: No - Physical Exam Vitals/I&O's: Vital Signs Temp Pulse Resp BP Pulse Ox 99.0 F 89 16 141/85 H 100 05/29/20 10:21 05/29/20 10:21 05/29/20 10:21 05/29/20 10:21 05/29/20 10:21 Oxygen Delivery Method Room Air Weight: 119.4 kg Body Mass Index (BMI) 38.8 Intake and Output for Last 24 Hours 05/27/20 05/28/20 05/29/20 23:59 23:59 23:59 Intake Total 110 / 110 Balance 110 / 110 General: Alert, Oriented x3, Cooperative HEENT: Atraumatic, PERRLA, EOMI, Normocephalic Neck: Supple, No JVD, Negative Carotid Bruits Lungs: Clear to auscultation, Normal air movement Cardiovascular: Regular rate, No murmurs Abdomen: Bowel Sounds Present, Soft, Non Tender Extremities: No edema, Capillary Refill Less than 3 Seconds Skin: No rashes, No breakdown Musculoskeletal: No Tenderness to Palpation of Joints or Extremities Neurological: Cranial nerves II-XII grossly intact Psych/Mental Status: Normal Affect, Appropriate Laboratory Results 05/29/20 10:10: Urine Test Negative Current Medications Lactated Ringer's () 1,000 mls @ 100 mls/hr IV .Q10H [facility] Last Admin: 05/29/20 10:38 Dose: 100 mls/hr Documented by: Assessment/Plan All Active Problems Left renal stone (Acute) Hydronephrosis concurrent with and due to calculi of kidney and ureter (Acute) Plan to proceed with left ureteroscopy extraction of stent and remove foreign object from the ureter and laser of remaining stone fragments.
--- NOTE | 2020-05-29 11:59 | DCINST_ITS ---
Discharge Diet: Light diet - advance as tolerated Discharge Activity: Return to Normal Activity Call your doctor if your incision/area has: Sudden Increased Bleeding Call your doctor if you observe: Fever of 101 or Higher Suture Line Care: Avoid Pulling/Pushing, Avoid Pinching/Bending Allergies/Adverse Reactions: Allergies No Known Allergies Allergy (Verified 05/29/20 10:16) Medications to take at Discharge Phentermine HCl [Adipex-P] 37.5 mg PO DAILY 05/21/20 Ciprofloxacin [Cipro] 500 mg PO BID #6 tab 05/29/20 Ibuprofen 600 mg PO Q6H PRN PRN #20 tab 05/29/20 The following prescriptions were given: Ciprofloxacin [Cipro] 500 mg PO BID #6 tab Transmission Status: Pending to [facility] Ibuprofen 600 mg PO Q6H PRN PRN #20 tab PRN Reason: Pain Score 1-10 Transmission Status: Pending to [facility] Primary Care Physician: Dirk Albright MD [Primary Care Provider] - Test Results: Test results from this visit will be discussed in further detail at your follow- up appointment, if applicable. Please Follow Up With: Gavin Stoll MD When: please call to make an appointment.
--- NOTE | 2020-05-29 12:00 | PCM.OPRPT ---
Report of Operation Date of Procedure: 05/29/20 Pre-Operative Diagnosis: Status post left ESWL and stent, retained stent, remaining fragments in the left kidney Post-Operative Diagnosis: Same Surgery/Procedure Performed:: Cystoscopy, left ureteroscopy extraction of stent and foreign object from the left ureter, left ureteroscopy and laser lithotripsy of remaining fragments. No stent Description of Surgical Findings:: 29-year-old female taken back to the operating room. After smooth induction of general anesthesia she was placed in dorsolithotomy position. The urethra was prepped and draped in the usual sterile fashion. Went into the bladder a 21 [place] rigid cystourethroscope. Went up the ureter with a semirigid ureteroscope encountered stent in the distal ureter I first tried the tipless basket but was not able to get the stent out. I then tried a second basket still not able to get the stent out finally I tried a ureteral ureter bicep forcep this is able to grabbed the stent and then gently pulled the stent out of the ureter and remove the stent completely. I went back in with a flexible ureteroscope went all the way to the kidney and the kidney I found lots of debris and fragments in the kidney itself I then used the laser fiber and lasered a few remaining large fragments from the prior treatment these were lasered little tiny pieces at the end of the lasering there is no more significant fragments all small pieces inside the ureter and in the renal pelvis of the left kidney I then worked my way down the ureter because of the stent was have been in place before the ureter was nice and dilated so I decided not to leave a stent patient's bladder was drained anesthetic was reversed and we can see her back in a few weeks for checkup. Type of Anesthesia:: General Drains: none - Admit VTE Documentation VTE Present on Admission: No
== END 2020-05-29 14:32 | disposition home or self-care (01) ==
LOC: SDC 09:52 → AC 09:54
PROVIDERS: Anesthesiology; PCP Family Medicine; Referring Provider Urology; Visit Provider Urology
PROC: 0TJ98ZZ Inspection of Ureter, Via Natural or Artificial Opening Endoscopic (ICD-10-PCS; CPT 52352; principal; 2020-05-29 11:30)
DX: Z46.6 Encounter for fitting and adjustment of urinary device (principal); N13.2 Hydronephrosis with renal and ureteral calculous obstruction
CPT/HCPCS: 00918; 52353; 81025; J7120; C1769; J2405

== ENCOUNTER 2020-05-31 12:14 | Observation (INO) | payer OTHER, MEDICAID, SELFPAY ==
[2020-05-29 10:21] VITALS: BMI 38.8
[2020-05-31 12:15] VITALS: BP 156/106; PULSE 90; RESP 16; TEMP 36.3; O2SAT 99; BMI 39.1
--- NOTE | 2020-05-31 12:29 | ED.VISSUMM ---
- ER Visit Summary Date of Service: 05/31/20 Chief Complaint: Left flank pain History of Present Illness: The patient is a 29 F presenting with left flank pain. Patient states she was seen in the ED on 05/19/2020. At that time she was diagnosed with kidney stone. She was admitted and stent was placed the next day per Dr. Stoll. 2 days later she underwent lithotripsy. The next week he attempted to remove the stent in his office. This was unsuccessful so the stent was removed the following day in the OR. This was 2 days ago. She continues to have left flank pain. She contacted Dr. Stoll last night and he prescribed [place]. She states this does improve her pain. She is also taking ibuprofen. She talked to him again today and she was advised to come to the ED for CT scan. She denies fever. She denies dysuria or hematuria. She has nausea with no vomiting. Denies other complaints. Physical Examination: Vitals are stable. Patient is afebrile. Alert no acute distress. HEENT exam is unremarkable. Neck is supple. Lungs are clear and equal bilaterally. Heart is regular rate and rhythm. Abdomen is soft nontender nondistended. No guarding or rebound Back: No CVA tenderness Extremities are unremarkable. Skin is warm and dry. No focal neurologic deficit. Remainder of exam is unremarkable. Emergency Department Course and Treatment: CT flank shows persistent left hydronephrosis and left hydroureter. No obstructive uropathy is seen at this time. Patient was given morphine, Zofran, Toradol. CBC, chemistries are unremarkable except for creatinine 1.25. Urinalysis shows 0-5 white blood cells. hCG negative. Discussed with and he will admit the patient. On reevaluation her pain is controlled. Disposition: Admission Impression: Left hydronephrosis This note was generated with [employer] dictation software. It may contain incorrect words, spelling, and punctuation that were not noted in review of the chart prior to signing ED Disposition - Plan for ED Patient: Referrals: Dirk Albright MD [Primary Care Provider] -
--- NOTE | 2020-05-31 12:32 | CT_ITS ---
STUDY: CT ABDOMEN AND PELVIS WITHOUT CONTRAST REASON FOR EXAM: Female, 29 years old. LT STONE 2 WEEKS AGO. WORSE FLANK PAIN RADIATION DOSAGE (If Supplied By Facility): CTDIvol = ( 22.53 ) mGy, DLP = ( 1255.04 ) mGycm TECHNIQUE: Transaxial images were obtained from the dome of the diaphragm to the symphysis pubis without oral contrast, and without intravenous contrast. Sagittal and coronal images were reconstructed. Individualized dose optimization techniques were used for this CT. COMPARISON: Comparison is made with prior examination dated 05/19/2020. FINDINGS: The visualized lung bases are unremarkable. The visualized portions of the heart are within normal limits. Normal liver. Normal gallbladder and extrahepatic biliary system. There is mild splenomegaly. Normal pancreas. Normal bilateral adrenal glands. 2 mm calculus in the lower calyx of the right kidney. There is enlargement of the left kidney. There are 2 nonobstructive calculi in the lower pole calyx of the left kidney. There is mild degree of left hydronephrosis and left hydroureter down to the level of the urinary bladder. The previously seen left renal calculus is not present at this time. Normal visualized stomach. Normal small intestine. Normal colon. The appendix is visualized and appears normal. Normal abdominal aorta. Normal inferior vena cava. Normal retroperitoneum. Normal urinary bladder. Normal abdominal wall. Normal osseous structures. CT/Abdomen/Pelvis without Cont IMPRESSION: Persistent left hydronephrosis and left hydroureter. No obstructive uropathy is seen at this time. Electronically Signed: Matthew Deal, at 13:54 EDT , Service support ,
[2020-05-31] MEDS: Morphine 4 MG/ML Syringe IV (12:37)
[2020-05-31] MEDS: Ketorolac 15 MG/ML Vial IV (12:37)
[2020-05-31] MEDS: Ondansetron 4 MG/2 ML Vial IV (12:37)
[2020-05-31 12:53] LABS: Bacteria 0 SEEN /hpf (None Seen); Mucous, Urine 0 SEEN /hpf (<or=2+)
[2020-05-31 12:55] LABS: Absolute Lymphocyte Count 1.88 X10^3/uL (0.83-4.51); Absolute Neutrophil Count 5.7 X10^3/uL (2.0-7.7); Basophil# 0.06 X10^3/uL; Basophil% 0.7 % (0-1); Eosinophil# 0.14 X10^3/uL; Eosinophils% 1.7 % (0-5); Hematocrit 41.6 % (37-47); Hemoglobin 13.4 g/dL (12.0-15.0); Lymphocyte # 1.88 X10^3/ul (4.0); Lymphocyte % 22.6 % (19-41); Mean Corp Hgb Conc 32.2 g/dL (32-36); Mean Corpuscular Hgb 27.9 pg (27.0-32.0); Mean Corpuscular Volume 86.7 fL (81-99); Monocyte# 0.55 X10^3/uL; Monocyte% 6.6 % (0-10); NRBC Flagged by Analyzer 0 % (0-5); Neutrophil # 5.68 X10^3/uL (2.7-7.7); Neutrophil % 68.2 % (47-70); Platelet Count 238 K/mm3 (150-450); RBC Distribution Width CV 12.9 % (11.6-14.6); RBC Distribution Width SD 40.3 fl (35.1-43.9); White Blood Count 8.3 K/mm3 (4.4-11.0)
[2020-05-31 12:56] LABS: Color, Urine Yellow (Yellow); Glucose, Dipstick Normal (Normal); Ketone-Dipstick Negative (Negative); Leukocyte Esterase-Dipstick 100 /ul (Negative); Nitrite-Dipstick Negative (Negative); Occult Blood-Urine 50 /ul (Negative); Protein-Dipstick 15 mg/dl (Negative); Urine Bilirubin Dipstick Negative (Negative); Urine Clarity Clear (Clear); Urine Urobilinogen Normal (Normal)
[2020-05-31 13:09] LABS: Anion Gap 6 (5-15); BUN 11 mg/dL (7-18); BUN/Creat Ratio 8.8 RATIO (10-20); Chloride 112 mmol/L (98-107); Creatinine, Serum 1.25 mg/dL (0.55-1.02); EST Glomerular Filtration Rate 54 mL/min (>60); Est Glom Filt Rate - Afr Amer 66 mL/min (>60); Estimated Creatinine Clearance 70.65 ml/min; Glucose 86 mg/dL (74-106); Potassium 3.7 mmol/L (3.5-5.1); Sodium Level 143 mmol/L (136-145)
[2020-05-31 13:11] LABS: Red Blood Cells-Urine 0-5 SEEN /hpf (0-5); Squamous Epithelial Cells - UA 5-10 SEEN /hpf (5-10); White Blood Cells 0-5 SEEN /hpf (0-5)
[2020-05-31 13:30] LABS: Internal QC Validated? YES +Cl - CLEAR BKGD; Pregnancy, Serum, hCG Quali. NEGATIVE Negative
[2020-05-31] MEDS: 0.9% Normal Saline 1,000 ML 999 ML IV (14:07)
[2020-05-31 15:04] VITALS: BP 134/79; PULSE 67; RESP 17; RESP 18; TEMP 36.9; O2SAT 98
[2020-05-31 15:38] VITALS: BMI 39.5
[2020-05-31 15:46] VITALS: BP 137/86; PULSE 71; RESP 18; TEMP 37; O2SAT 100
[2020-05-31 15:51] VITALS: PULSE 80
--- NOTE | 2020-05-31 16:20 | RAD_ITS ---
HISTORY: abdomen pain, Hx kidney stones, left sided pain EXAM: KUB COMPARISON: CT scan of the abdomen and pelvis from less than 3 hours earlier FINDINGS: # of images incl. paperwork: 2 The calcifications within the inferior pole of the left kidney seen on the recent CT scan are suggested inferior to the left 12th rib. Superimposed over the right hemisacrum there is a tiny punctate calcification not identified on the CT. This is of unknown etiology. This could just be sacral ala that is focally dense No free air is perceived. No dilated or loops of bowel are seen. There is no mass or suspicious calcification. No evidence of obstruction. RAD/Abdomen Single View IMPRESSION: Calcification superimposed over the inferior pole left kidney consistent with those seen as nonobstructing calculi on the recent CT scan.. at 0126 Reported and signed by: Everette Ramos MD Electronically Signed: Everette Ramos MD at 1:24 EDT Tel , Service support ,
[2020-05-31] MEDS: 0.9% Normal Saline 1,000 ML 150 ML IV (16:45)
[2020-05-31] MEDS: 0.9% Saline Lock 10 ML Syringe IV (16:45)
[2020-05-31 20:39] VITALS: BP 109/60; PULSE 80; RESP 18; TEMP 36.9; O2SAT 98
[2020-05-31] MEDS: Ciprofloxacin 400 MG/200 ML BAG 200 MG IV (21:26)
[2020-06-01] MEDS: 0.9% Normal Saline 1,000 ML 150 ML IV ×2 (01:22→08:10)
[2020-06-01 02:12] VITALS: BP 115/67; PULSE 66; RESP 16; TEMP 36.9; O2SAT 100
[2020-06-01] MEDS: Ciprofloxacin 400 MG/200 ML BAG 200 MG IV (10:42)
--- NOTE | 2020-06-01 11:41 | HP.PCM_ITS ---
History and Physical Date of Admission: 05/31/20 29-year-old female who underwent cystoscopy ureteroscopy laser of stones in the left kidney she also had a retained stent that had migrated up the left ureter. At the time of that surgery decided not to leave a stent and on the left side. She did not called back the following day on in severe pain a lot of pressure. Thought perhaps is passing some fragments told her to push fluids. On Wednesday she called back again still not feeling well fairly symptomatic and painful so she was admitted to the hospital hydrated start antibiotics CAT scan was done to demonstrate a hydronephrosis down to the ureterovesical junction but no stone so I think she has edema of the distal left ureter probably as a result of the migrated stent causing inflammation distal left ureter so the plan is to place take her to surgery today place a stent on the left side will use a longer stent a 6 Pashto by 28 cm stent she should be able go home after the stent is in place and will let it defervesced for the next 10 days and then remove the stent about a week later she was agreeable with this plan will do the stent today and she will go home.
--- NOTE | 2020-06-01 12:22 | DCINST_ITS ---
Discharge Diet: Light diet - advance as tolerated Discharge Activity: May not drive while taking narcotic pain medications. Call your doctor if you observe: Fever of 101 or Higher Suture Line Care: Avoid Pulling/Pushing, Avoid Pinching/Bending Allergies/Adverse Reactions: Allergies No Known Allergies Allergy (Verified 05/31/20 12:14) Medications to take at Discharge Phentermine HCl [Adipex-P] 37.5 mg PO DAILY 05/21/20 Ciprofloxacin [Cipro] 500 mg PO BID #6 tab 05/29/20 Ibuprofen 600 mg PO Q6H PRN PRN #20 tab 05/29/20 Hydrocodone/Acetaminophen [Lorcet 5-325 mg Tablet] 1 tab PO Q4H PRN PRN 05/31/20 Primary Care Physician: Dirk Albright MD [Primary Care Provider] - Test Results: Test results from this visit will be discussed in further detail at your follow- up appointment, if applicable. Please Follow Up With: Gavin Stoll MD - [phone] When: please call to make an appointment.
--- NOTE | 2020-06-01 12:47 | OP.PCM_ITS ---
Report of Operation Date of Procedure: 06/01/20 Pre-Operative Diagnosis: Left ureteral colic edema of the ureter. Left hy dronephrosis Post-Operative Diagnosis: Same Surgery/Procedure Performed:: Cystoscopy left retrograde pyelogram left stent placement interpretation fluoroscopic images Description of Surgical Findings:: 29-year-old female she underwent ureteroscopy extraction of a retained stent and laser fragments. She was discharged home at the time of the surgery made a decision not to put a stent back in because she had a prior stent however she presented back to the emergency room yesterday with severe left renal colic CAT scan demonstrated left hydronephrosis and edema in the distal left ureter. So plan today is to place a stent on the left side I think she developed edema and swelling of the distal left ureter with a stent and this will let the ureter and the kidney drain and hopefully will resolve the colic. She was taken back to the operating room at the smooth induction of anesthesia she was placed in dorsolithotomy position went in the bladder with a 21 Belarusian rigid cystourethroscope identified the left ureteral orifice advanced a wire up into the kidney performed a retrograde pyelogram and see contrast going up to the kidney can see the calyces in the renal pelvis and the left side advance a wire up in the left kidney and over the wire place a stent it was a 6 Belarusian by 28 cm stent. Once the stent was a good position I pulled the wire the stent: The kidney bladder good position I left the string on the stent cut it short. And plan will be her to see us in about 10 days to get the stent out in the of fice. Type of Anesthesia:: General Drains: left - Admit VTE Documentation VTE Present on Admission: No
[2020-06-01 12:50] LABS: Internal QC Validated? YES +Cl - CLEAR BKGD; Pregnancy, Urine Negative Negative
[2020-06-01 13:29] VITALS: BP 123/86; PULSE 72; RESP 16; TEMP 36.7; O2SAT 97
[2020-06-01 14:59] VITALS: BP 147/84; PULSE 93; RESP 16; TEMP 37.2; O2SAT 99
== END 2020-06-01 15:17 | disposition home or self-care (01) ==
LOC: ED 12:52 → MS3 15:18
PROVIDERS: Admitting Provider Urology; Emergency Provider Emergency Medicine; PCP Family Medicine; Visit Provider Urology
DX: R10.9 Unspecified abdominal pain (principal); N13.30 Unspecified hydronephrosis
CPT/HCPCS: 52332; 74018; 74176; 76000; 80048; 81001; 81025; 84703; 85025; 96361; 96365; 96366; 96375; 99218; 99281; 99285; J7030; A4216; C1769; G0378; J0744; J2405

== ENCOUNTER 2022-02-18 10:00 | Inpatient (IN) | payer OTHER, MEDICAID, SELFPAY ==
[2022-02-18] VITALS (16 sets, daily range): BP systolic 110–134; BP diastolic 65–87; PULSE 67–88; RESP 16–18; TEMP 36.1–36.8; O2SAT 96–100; BMI 41.9
[2022-02-18] MEDS: Lactated Ringers 1,000 ML 999 ML IV (10:30)
[2022-02-18] MEDS: Acetaminophen 500 MG Tablet 1000 MG PO ×3 (11:15→23:18)
[2022-02-18 11:23] LABS: Absolute Lymphocyte Count 1.41 X10^3/uL (0.83-4.51); Absolute Neutrophil Count 7.2 X10^3/uL (2.0-7.7); Basophil# 0.02 X10^3/uL; Basophil% 0.2 % (0-1); Eosinophil# 0.03 X10^3/uL; Eosinophils% 0.3 % (0-5); Hematocrit 32.7 % (37-47); Hemoglobin 10.6 g/dL (12.0-15.0); Lymphocyte # 1.41 X10^3/ul (0.83-4.51); Lymphocyte % 15.6 % (19-41); Mean Corp Hgb Conc 32.4 g/dL (32-36); Mean Corpuscular Hgb 27.8 pg (27.0-32.0); Mean Corpuscular Volume 85.8 fL (81-99); Mean Platelet Vol. 12.8 fl (6.2-12.0); Monocyte# 0.29 X10^3/uL; Monocyte% 3.2 % (0-10); NRBC Flagged by Analyzer 0 % (0-5); Neutrophil # 7.24 X10^3/uL (2.7-7.7); Neutrophil % 80.3 % (47-70); Platelet Count 198 K/mm3 (150-450); RBC Distribution Width CV 12.5 % (11.6-14.6); RBC Distribution Width SD 38.9 fl (35.1-43.9); Red Blood Count 3.81 M/mm3 (4.2-5.4)
[2022-02-18] MEDS: Lactated Ringers 1,000 ML 150 ML IV (11:28)
[2022-02-18] MEDS: Sodium Citrate/Citric Acid 30 ML UDC PO (11:52)
--- NOTE | 2022-02-18 12:53 | HP.PCM.OB_ITS ---
HPI - General General Date of Admission: 02/18/22 Date of Service: 02/18/22 Chief Complaint: HPI Narrative JODY CARLSON, is a 31-year-old 5 para 3-0-1-3 female who presents at 39+ weeks gestation for primary section due to suspected macrosomia by ultrasound. She had an ultrasound performed last week that would estimate the weight to be approximately 5000 g at her EDC. She denies any vaginal bleeding or leaking of fluid. Maternal Data Information Final DONI: 02/24/22 Gestational age: 39 1/7 [facility], [facility] Medical History (Updated 02/18/22 @ 12:[address] Diamante Carmichael MD) HPV (human papilloma virus) infection macrosomia Home Medications aspirin 81 mg chewable tablet 1 tab PO DAILY 02/18/22 [History Last Taken Unknown] vits,calcium no.78-iron fumarate-folic acid 29 mg-1 mg tablet (Prenatabs FA) 1 tab PO DAILY 02/18/22 [History Last Taken Unknown] Allergy/AdvReac Type Severity Reaction Status Date / Time No Known Allergies Allergy Verified 02/18/22 10:19 Surgical History (Updated 02/18/22 @ 10:45 by Roselyn Griffiths) History of appendectomy History of gynecologic surgery Social History Smoking Status: Current every day smoker History Elective abortions Hx Para 3 Spontaneous abortions Hx # Term Pregnancies Ectopic pregnancies Hx # Pregnancies Multiple births # of living children Vital Signs Vital Signs Vital Signs: 02/18/22 11:34 Temperature 98.2 F Temperature Source Temporal Pulse Rate 82 Respiratory Rate 16 Blood Pressure 132/85 H Blood Pressure Mean 100 Blood Pressure Source Monitor Blood Pressure Position Semi-Fowlers Blood Pressure Location Left Arm Pulse Ox 98 Oxygen Delivery Method Room Air Weight Weight: 128.911 kg Body Mass Index (BMI) 41.9 Physical Exam Const alert and no apparent distress General Appearance: cooperative HEENT normocephalic Resp normal respiratory effort Cardio regular rate GI soft to palpation GI Narrative: gravid, nontender, appropriate for gestational age Extremity no calf tenderness General Extremity: edema Skin no wounds Rashes: No rashes noted Psych activity/motor behavior normal Labs Labs Labs: Blood Type A POSITIVE Antibody Screen NEGATIVE Hct 32.7 % (37-47) L Hgb 10.6 g/dL (12.0-15.0) L Rhogam given: No Assessment & Plan (1) 39 weeks gestation of : PLAN: Risk benefits and alternatives to primary section due to suspected macrosomia by ultrasound and clinical assessment were discussed with the patient, questions were answered to her satisfaction consent was signed. (2) macrosomia during in third trimester:
--- NOTE | 2022-02-18 12:55 | EX.PCM.OBRPT ---
Assessment & Plan (1) macrosomia during in third trimester: (2) 39 weeks gestation of : (3) delivery delivered: Maternal Data Information Final DONI: 02/24/22 Gestational age: 39 1/7 Details Operative Information Date of Procedure: 02/18/22 Pre-Operative Diagnosis: macrosomia Post-Operative Diagnosis: same Classification: Scheduled Procedure Type: low transverse sales agent insurance #1: Rebeca Coburn Type of Anesthesia: Spinal Anesthesiologist: Sarabjit Beltre Antibiotic Given: Ancef 3 grams IV x1 Drain: Oneil to straight drain Estimated Blood Loss: 900 Fluids Replaced: 800 Procedure Start Time: : Procedure Stop Time: 13:01 Time of Delivery: 12: Findings Description of Procedure: The patient was taken to the operating room. She was prepped and draped in the dorsal supine position with a leftward tilt. A Pfannenstiel skin incision was made approximately 2 cm above the symphysis pubis and carried through to underlying layer fascia with the scalpel. The fascia was incised incised in the midline and extended laterally with blunt dissection. The fascia was dissected off the rectus muscles with blunt dissection. The rectus muscles were in the midline and the peritoneum was entered bluntly. The peritoneal incision was stretched and the bladder blade was placed. There is a bleeding blood vessel on the edge of the rectus muscle that was grasped with a hemostat and Bovie cauterized for hemostasis. The uterine incision was made in a low transverse fashion with the scalpel and extended superiorly and inferiorly with blunt dissection. The amniotic membranes were ruptured bluntly and clear amniotic fluid returned. The infant's head was brought to the incision in the flexed position but was very round and unengaged. Even after LAT leaking out the amniotic fluid I difficulty delivering the head with just fundal pressure. The vacuum was then placed on the the head on the flexion point and the vacuum was created 550 mmHg. I pulled with 1 pull with mid fundal pressure and the head delivered easily. The vacuum was removed and there were no pop offs. The remainder the was then delivered with gentle traction in the standard fashion. The mouth and nares were bulb suctioned. The cord was clamped and cut as the infant was stimulated. Cord clamping was delayed approximately 45 seconds. The was handed off to the waiting nursing staff. The placenta was delivered with fundal massage and gentle traction in the standard fashion. The uterus was exteriorized and cleared of all clots and debris. The cervix was dilated with a ring forcep. The uterine incision was closed with #1 Vicryl in a running locked fashion. A second layer of the same suture was used in an imbricating fashion. There were 2 bleeding sinuses that were oversewn with 0 Vicryl [id number] sutures and were then hemostatic. The incision was examined and was found to be hemostatic. The uterus was placed back into the peritoneal cavity and hemostasis was again confirmed. The rectus muscles were examined and any bleeding was Bovie cauterized. The parietal peritoneum was closed with an 0 Vicryl running suture. The surgical teams outer gloves were then changed. The rectus fascia was examined and any bleeding was Bovie cauterized and the rectus fascia was closed with 1 Vicryl suture in a running standard fashion. The subcutaneous tissue was examining and any bleeding was Bovie cauterized. The subcutaneous tissue was reapproximated with 3-0 Vicryl suture. The skin was closed in a subcuticular fashion by the [employer] with me present in the labor and delivery suite. I performed the remainder of the procedure with assistance. All sponge, lap, and needle counts were correct. The patient was taken to her room for recovery in a stable condition. Presentation: Positive for Vertex Amniotic Membrane Rupture Type: Artificial Amniotic Fluid Description: Clear Placental Delivery Description: Expressed Placenta Disposition: [facility] Cord Vessel Description: 3 Vessels Cord Entanglement: None Infant A Gender: Male (1 minute): 8 (5 minute): 9 Delayed Cord Clamping: Yes Complications Complications: none
[2022-02-18] MEDS: Oxytocin 30 units/NS 500 ml 30 UNITS/500 ML IV.SOLN 167 UNITS IV (13:20)
[2022-02-18] MEDS: Ketorolac 30 MG/ML Syringe IV ×2 (14:00→20:17)
--- NOTE | 2022-02-18 15:10 | NURSING ---
Surgicel Original used by Dr Carmichael. Lot #[id number]. Exp date 08/15/25
[2022-02-18] MEDS: Lactated Ringers 1,000 ML 100 ML IV (16:21)
[2022-02-18] MEDS: Nalbuphine 10 MG/ML Ampul 5 MG IV ×3 (17:35→23:18)
[2022-02-18] MEDS: 0.9% Saline Lock 10 ML Syringe IV (23:18)
[2022-02-19] VITALS (8 sets, daily range): BP systolic 115–125; BP diastolic 71–89; PULSE 68–101; RESP 16–18; TEMP 36.1–37.2; O2SAT 97–100
[2022-02-19] MEDS: Enoxaparin 40 MG/0.4 ML Syringe SC ×3 (00:04→23:17)
[2022-02-19] MEDS: Ketorolac 30 MG/ML Syringe IV ×2 (02:12→08:44)
[2022-02-19] MEDS: Acetaminophen 500 MG Tablet 1000 MG PO ×4 (05:14→23:17)
[2022-02-19 05:27] LABS: Hemoglobin 8.8 g/dL (12.0-15.0); Mean Corp Hgb Conc 32.6 g/dL (32-36); Mean Corpuscular Hgb 28.5 pg (27.0-32.0); Mean Corpuscular Volume 87.4 fL (81-99); Mean Platelet Vol. 11.8 fl (6.2-12.0); Platelet Count 171 K/mm3 (150-450); RBC Distribution Width CV 12.6 % (11.6-14.6); RBC Distribution Width SD 39.9 fl (35.1-43.9); Red Blood Count 3.09 M/mm3 (4.2-5.4); White Blood Count 9.1 K/mm3 (4.4-11.0)
--- NOTE | 2022-02-19 06:59 | NURSING ---
All charting by Iftikhar Knight RN reviewed by this preceptor RN.
--- NOTE | 2022-02-19 07:42 | PCM.PN.OB ---
Subjective Subjective Pain well controlled. Average lochia. Tolerating regular diet. Denies nausea or vomiting. Objective Data Objective Data Vital Signs: Vital Signs Temp Pulse Resp BP Pulse Ox O2 Del Method 98.1 F 70 16 115/73 97 Room Air 02/19/22 04:20 02/19/22 06:00 02/19/22 06:00 02/19/22 04:20 02/19/22 06:00 02/19/22 06:00 Oxygen Delivery Method Room Air Weight: 128.911 kg Body Mass Index (BMI) 41.9 Intake & Output: Intake and Output for Last 24 Hours 02/17/22 02/18/22 02/19/22 23:59 23:59 23:59 Intake Total 3583.33 / 3583.33 Output Total 1400 / 1400 750 / 750 Balance 2183.33 / 2183.33 -750 / -750 Lab / Micro Data Result Diagrams: 02/19/22 05:20 Labs: Laboratory Results - last 24 hr 02/18/22 10:30: WBC 9.0, RBC 3.81 L, Hgb 10.6 L, Hct 32.7 L, MCV 85.8, MCH 27.8, MCHC 32.4, RDW Std Deviation 38.9, RDW Coeff of Prakash 12.5, Plt Count 198, MPV 12.8 H, Immature Gran % (Auto) 0.400, Neut % (Auto) 80.3 H, Lymph % (Auto) 15.6 L, [place] % (Auto) 3.2, Eos % (Auto) 0.3, Baso % (Auto) 0.2, Absolute Neuts (auto) 7.2, Absolute Lymphs (auto) 1.41, Nucleated RBC % 0 02/18/22 10:30: Blood Type A POSITIVE, Antibody Screen NEGATIVE 02/19/22 05:20: WBC 9.1, RBC 3.09 L, Hgb 8.8 L, Hct 27.0 L, MCV 87.4, MCH 28.5, MCHC 32.6, RDW Std Deviation 39.9, RDW Coeff of Prakash 12.6, Plt Count 171, MPV 11.8 Micro: Microbiology 02/18/22 10:30 Nasal Secretion SARS-CoV-2 Antigen (Rapid) - Final Physical Exam Const alert General Appearance: cooperative GI GI Narrative: soft, moderate distention, fundus firm, appropriately tender. Abdominal bandage clean dry and intact Assessment & Plan (1) delivery delivered: PLAN: Postoperative day #1 status post primary section. Patient is doing well. is breast-feeding and doing well. Patient would likely be discharged home tomorrow. Acute blood loss anemia superimposed on chronic antepartum anemia. Anemia appropriate for blood loss during surgery. Recheck tomorrow to ensure it stable.
[2022-02-19] MEDS: Senna/Docusate Sodium 1 Tablet PO (08:44)
[2022-02-19] MEDS: 0.9% Saline Lock 10 ML Syringe IV ×2 (08:44→23:21)
[2022-02-19] MEDS: Ibuprofen 600 MG Tablet PO ×2 (14:20→19:31)
[2022-02-20] MEDS: Ibuprofen 600 MG Tablet PO ×2 (01:40→07:50)
[2022-02-20 01:42] VITALS: BP 113/73; PULSE 85; RESP 16; TEMP 36.1
[2022-02-20] MEDS: Acetaminophen 500 MG Tablet 1000 MG PO ×2 (05:24→11:26)
[2022-02-20 06:11] LABS: Hematocrit 28.3 % (37-47); Hemoglobin 8.7 g/dL (12.0-15.0); Mean Corp Hgb Conc 30.7 g/dL (32-36); Mean Corpuscular Hgb 26.9 pg (27.0-32.0); Mean Corpuscular Volume 87.6 fL (81-99); Mean Platelet Vol. 12.4 fl (6.2-12.0); Platelet Count 193 K/mm3 (150-450); RBC Distribution Width SD 41.2 fl (35.1-43.9); Red Blood Count 3.23 M/mm3 (4.2-5.4); White Blood Count 9.2 K/mm3 (4.4-11.0)
[2022-02-20] MEDS: oxyCODONE 5 MG Tablet PO (07:50)
[2022-02-20 08:00] VITALS: BP 133/85; PULSE 75; RESP 18; TEMP 36.3; O2SAT 97
--- NOTE | 2022-02-20 08:35 | PN_ITS ---
Subjective Subjective patient seen at bedside, doing well. Patient reports good pain control. lochia mild. passing flatus, tolerating regular diet. Objective Data Objective Data Vital Signs: Vital Signs Temp Pulse Resp BP Pulse Ox O2 Del Method 97.3 F L 75 18 133/85 H 97 Room Air 02/20/22 08:00 02/20/22 08:00 02/20/22 08:00 02/20/22 08:00 02/20/22 08:00 02/20/22 08:00 Oxygen Delivery Method Room Air Weight: 128.911 kg Body Mass Index (BMI) 41.9 Intake & Output: Intake and Output for Last 24 Hours 02/18/22 02/19/22 02/20/22 23:59 23:59 23:59 Intake Total 3583.33 / 3583.33 Output Total 1400 / 1400 750 / 750 Balance 2183.33 / 2183.33 -750 / -750 Lab / Micro Data Result Diagrams: 02/20/22 05:30 Labs: Laboratory Results - last 24 hr 02/20/22 05:30: WBC 9.2, RBC 3.23 L, Hgb 8.7 L, Hct 28.3 L, MCV 87.6, MCH 26.9 L , MCHC 30.7 L D, RDW Std Deviation 41.2, RDW Coeff of Prakash 13.0, Plt Count 193, MPV 12.4 H Micro: Microbiology 02/18/22 10:30 Nasal Secretion SARS-CoV-2 Antigen (Rapid) - Final Physical Exam Narrative dressing dry and intact. fundus firm. Const alert and oriented x3 General Appearance: cooperative HEENT normocephalic Neck General: normal visual inspection GI soft to palpation and non-distended GI Narrative: Fundus firm Extremity normal to inspection and no calf tenderness Skin no rashes or lesions noted Neuro oriented x3 and CN's II-XII intact bilaterally Psych mental status grossly normal Assessment & Plan Assessment/Plan (1) delivery delivered: PLAN: POD# 2 , Doing well Routine care pain mgmt monitor VS ambulation dc home
--- NOTE | 2022-02-20 08:36 | DCINST_ITS ---
Discharge Instructions Procedure Diet Discharge Diet: No restrictions Activity May resume sexual activity in: 6-8 weeks Lifting Restrictions: 25 Dressing / Incision Call your doctor if your incision/area has: Continuous Slow Oozing, Sudden Increased Bleeding, Increased Pain/ Swelling, Increased Redness, Foul Smelling Discharge and Swelling at the incision site Call your doctor if you observe: Fever of 101 or Higher, Inability to urinate, Using more than 1 pad per hour and Uncontrolled pain Additional Dressing/Incision Instructions:: remove dressing at 7 days post op- if it becomes saturated prior to that time you may remove it. Let soap and water run over incision sites and dab dry. keep incision clean and dry. Follow Up Care Please Follow Up With: Kathia Stewart MD When: 1-2 weeks post of incision check and again at 6 weeks post . [phone] Test Results: Test results from this visit will be discussed in further detail at your follow- up appointment, if applicable. Discharge Plan Admission Admit Date/Time: 02/18/22 10:00 Attending Provider: Diamante Carmichael Primary Care Provider: Diamante Abreu Discharge Orders/Prescriptions Prescriptions: New acetaminophen 500 mg Tablet 1,000 mg PO Q6H Qty: 0 0RF ibuprofen 600 mg Tablet 600 mg PO Q6H Qty: 0 0RF oxycodone 5 mg Tablet 5 - 10 mg PO Q4H PRN PRN (Reason: Pain Score 4-10) 5 Days Qty: 15 0RF Continued Prenatabs FA 29-1 mg Tablet 1 tab PO DAILY Discontinued aspirin [Baby Aspirin] 81 mg Tablet,Chewable 1 tab PO DAILY Referrals / Follow Up: Diamante Abreu PA [Primary Care Provider] - Disposition Disposition (needs filled in before D/C Order can be placed): Home, Self Care
--- NOTE | 2022-02-20 08:46 | PCM.DC.BLA ---
Discharge Summary Date of Admission: 02/18/22 Date of Discharge: 02/20/22 Summary: Underwent a primary Low transverse c/s for suspected macrosomia by Dr. Diamante Carmichael. Patient had an uncomplicated postoperative course and was discharged home on postoperative day #2. Meaningful Use Info Meaningful Use Diagnoses (Choose all that apply): None applicable Discharge Plan Admission Admit Date/Time: 02/18/22 10:00 Attending Provider: Diamante Carmichael Primary Care Provider: Diamante Abreu Discharge Orders/Prescriptions Prescriptions: New acetaminophen 500 mg Tablet 1,000 mg PO Q6H Qty: 0 0RF ibuprofen 600 mg Tablet 600 mg PO Q6H Qty: 0 0RF oxycodone 5 mg Tablet 5 - 10 mg PO Q4H PRN PRN (Reason: Pain Score 4-10) 5 Days Qty: 15 0RF Continued Prenatabs FA 29-1 mg Tablet 1 tab PO DAILY Discontinued aspirin [Baby Aspirin] 81 mg Tablet,Chewable 1 tab PO DAILY Referrals / Follow Up: Diamante Abreu PA [Primary Care Provider] - Disposition Disposition (needs filled in before D/C Order can be placed): Home, Self Care
[2022-02-20] MEDS: Senna/Docusate Sodium 1 Tablet PO (11:26)
[2022-02-20] MEDS: Enoxaparin 40 MG/0.4 ML Syringe SC (11:27)
[2022-02-20 11:33] VITALS: BP 131/79; PULSE 93; RESP 20; TEMP 36.8
--- NOTE | 2022-02-20 13:30 | CASEMGMT ---
Social Work Assessment Reason for Referral: Limited Support, FOB not involved. ABRAHAM spoke with RN, no concerns noted. MOB: 12/16 PNC: MOB reports she received care at [facility] Control: MOB reports she will use control pill Baby: Nils Medina Apgars: 04/24 Weight: 4350G Crew Car Driver: Rita. MOB reports she is trying to get a Crew Car Driver at [facility] in [place]. Breast Feed MOB Other Children MOB reports three other children. Madeleine age 7, Jacklyn age 5 tomorrow, Cem age 3. MOB reports the the FOB of these children is her ex- and they have shared custody. MOB reports no issues with ex- and custody. Housing: MOB reports no concerns Transportation: MOB Reports she has access to transportation. Supplies: MOB reports she has all needed baby supplies Supports: MOB states that she has supports and she has additional supports other than FOB. 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 MOB reports that she will resume work at [employer] partition assembler in May. Agency Involvement: MOB reports that she is involved in [facility] and [employer] [place]. MOB reports that she thinks she will be involved in court soon as she thinks FOB is going to take her to court for 50/50 custody. MOB Reports that she tried to work out a schedule for FOB but he kept stating that he wanted 50/50 custody and MOB states that a does not need that kind of schedule. MOB Mental Health Hx: MOB states no Mental Health History. MOB states currently she has no suicidal or homicidal thoughts. PHQ-2 score: 0 MOB AOD History: MOB reports that she is current everyday smoker and smokes vape. SW educated MOB to not smoke around the baby and when she smokes to leave baby with responsible adult and smoke outside. MOB state understanding. FOB: Ean Time Together: MOB reports a little over a year. Involved at : MOB reports to prefer to not have FOB involved Employment: MOB reports FOB does work Other Children: MOB reports FOB does not have other children FOB Mental Health/AOD: MOB state FOB is on different Mental Health Medications. MOB states FOB does not use substances. MOB reports no concerns for Domestic Violence. SW spoke with MOB about PPD. SW educated MOB on PPD, Shaken Baby, and Safe Sleeping. Resource packet provided. The resource packet includes [facility] Resources, Counseling Resources, information on Help Me Grow and [facility] Moms of Newborns. MOB appropriate during conversation. MOB with appropriate eye contact. MOB had friend present in room and MOB did give permission for SW to speak with MOB while her friend is present. Plan: Home, with resources Rere Rai INTELLECTUAL PROPERTY COUNSEL, ACCOUNT RECEIVABLE ASSOCIATE
== END 2022-02-20 14:06 | disposition home or self-care (01) | DRG 787 ==
PROVIDERS: Admitting Provider Obstetrics & Gynecology; Visit Provider Obstetrics & Gynecology
PROC: 10D00Z1 Extraction of Products of Conception, Low, Open Approach (ICD-10-PCS; CPT 59514; principal; 2022-02-18 11:45)
DX: O36.63X0 Maternal care for excessive fetal growth, third trimester, not applicable or unspecified (principal); D62 Acute posthemorrhagic anemia; F17.290 Nicotine dependence, other tobacco product, uncomplicated; O99.334 Smoking (tobacco) complicating childbirth; Z37.0 Single live birth; O99.02 Anemia complicating childbirth; Z3A.39 39 weeks gestation of pregnancy; Z79.82 Long term (current) use of aspirin
CPT/HCPCS: 59050; 85025; 85027; 86850; 86900; 86901; 87426; 99218; J7120; A4216; G0378

== ENCOUNTER 2023-01-01 08:02 | Day surgery (SDC) | payer OTHER, MEDICAID, SELFPAY ==
--- NOTE | 2022-12-16 16:44 | PCM.HP.BLA ---
History and Physical HPI: The patient is a 32 year old female presenting for pre-operative visit. She is scheduled for laparoscopic bilateral salpingectomy for sterilization request. Procedure discussed along with risks, benefits and complications. Other alternatives discussed for management. Consent form signed? Yes. ? ? PAST MEDICAL HISTORY PAST MEDICAL HISTORY Diagnosis Date ? Abnormal glandular Papanicolaou smear of cervix ? ? Anemia ? ? Appendicitis, acute 06/23/2011 ? Kidney stones 2019 ? ? PAST SURGICAL HISTORY PAST SURGICAL HISTORY Procedure Laterality Date ? APPENDECTOMY ? 06/23/2011 ? CERVIX UTERI CONIZA LP ELCTRO EXCI ? ? ? DELIVERY ONLY ? 02/18/2022 ? LTCS ? ERCP DESTRUCTION/LITHOTRIPSY CALCULI ANY METHOD ? ? ? 2019 ? PAST SURGICAL HISTORY OF ? 05/2020 ? kidney surgeries-stent placed/taken out ? ? ? CURRENT MEDICATIONS Current Outpatient Medications Medication Sig Dispense Refill ? escitalopram oxalate (LEXAPRO ORAL) Take by mouth. ? ? ? MEDICATION, NON-DATABASE Medical Marijuana ? ? ? Norethindrone, Contraceptive, (ORTHO MICRONOR) 0.35 mg tablet Take 1 tablet by mouth once daily. (Patient not taking: No sig reported) 28 tablet 5 ? No current facility-administered medications for this visit. ? ? ALLERGIES: Patient has no known allergies. ? PERSONAL HISTORY: SOCIAL HISTORY Social History ? Tobacco Use ? Smoking status: Never ? Smokeless tobacco: Never Vaping Use ? Vaping Use: current everyday user ? Quit date: 06/15/2021 ? Substances: Nicotine ? Devices: Disposable, Pre-filled or refillable cartridge Substance Use Topics ? Alcohol use: No ? ? Comment: rare ? Drug use: Yes ? ? Types: Marijuana ? ? Comment: Medical Marijuana ? FAMILY HISTORY: FAMILY HISTORY FAMILY HISTORY Problem Relation Age of Onset ? other (mva) Mother ? ? No Known Problems Father ? ? other (Charcot Valerie Tooth Disease) Sister ? ? No Known Problems Brother ? ? Osteoporosis Maternal Grandmother ? ? No Known Problems Maternal Grandfather ? ? Cancer Paternal Grandmother ? ? skin cancer ? Heart Paternal Grandmother ? ? Lung Cancer Paternal Grandmother ? ? other (positive MTHFR) Paternal Grandmother ? ? COPD Paternal Grandfather ? ? No Known Problems Daughter ? ? No Known Problems Daughter ? ? No Known Problems Son ? ? ? REVIEW OF SYMPTOMS: GENERAL: denies fevers or chills ENDOCRINOLOGY: has not been on steroids Cardiology : denies palpitations or chest pain Respiratory: denies SOB or cough Hematology: denies history of prolonged bleeding or easy bruising or VTE Allergy: Denies history of personal or family history of allergy to anesthesia ? PHYSICAL EXAMINATION: ? VITALS: Blood pressure 110/66, pulse 90, resp. rate 16, height 5' 8 (1.727 m), weight 234 lb (106.1 kg), last menstrual period 12/16/2022, SpO2 96 %, not currently . ? GENERAL: The patient is well nourished, well hydrated in no acute distress. , The patient is oriented to time, place, and person. NECK: Supple. No lynphadenopathy, normal thyroid, no thyromegaly. LUNGS: Clear to auscultation bilaterally. no wheezes, rhonchi or rales HEART: Regular rate and rhythm, Normal heart sounds, and No murmurs or gallops ? IMPRESSION: Sterilization request ? PLAN: The risks/benefits/alternatives and personal involved for the planned laparoscopic bilateral salpingectomy were reviewed with the patient. Her questions were answered to her satisfaction and she desires to proceed. Consent was signed. I reviewed with her postop instructions and expectations. ? ? I have reviewed and updated past medical and surgical history, medications and allergies Assessment & Plan Assessment/Plan (1) Consultation for sterilization:
[2023-01-01] VITALS (7 sets, daily range): BP systolic 95–132; BP diastolic 57–73; PULSE 58–72; RESP 12–16; TEMP 36.6–36.8; O2SAT 85–100; BMI 34.8
[2023-01-01 08:30] LABS: Internal QC Validated? YES +Cl - CLEAR BKGD; Pregnancy, Urine Negative Negative
[2023-01-01] MEDS: Acetaminophen 500 MG Tablet 1000 MG PO (08:55)
[2023-01-01] MEDS: Lactated Ringers 1,000 ML 15 ML IV (08:55)
[2023-01-01] MEDS: Ketorolac 30 MG/ML Syringe IV (08:56)
[2023-01-01 09:09] LABS: Mean Corpuscular Hgb 27.5 pg (27.0-32.0); Mean Platelet Vol. 12.3 fl (6.2-12.0); Platelet Count 249 K/mm3 (150-450); RBC Distribution Width CV 14.1 % (11.6-14.6); RBC Distribution Width SD 45.9 fl (35.1-43.9); Red Blood Count 4.72 M/mm3 (4.2-5.4); White Blood Count 6.7 K/mm3 (4.4-11.0)
--- NOTE | 2023-01-01 09:09 | DCINST_ITS ---
Discharge Instructions Diet Discharge Diet: Light diet - advance as tolerated Activity Discharge Activity: May Drive (in 1-2 days as tolerated) and May Take a Tub Bath (in 7 days) Return to work on:: 01/08/23 May resume sexual activity in: 1 week Lifting Restrictions: 15 lbs x 1 week Dressing / Incision Call your doctor if your incision/area has: Sudden Increased Bleeding, Foul Smelling Discharge and Swelling at the incision site Call your doctor if you observe: Fever of 101 or Higher Cleanse incision/area with: Soap & Water (Your incisions have skin glue, it can get wet. Leave it on until it falls off or 7-10 days at minimum) Follow Up Care Please Follow Up With: Diamante Carmichael MD When: as needed. Call [phone] with questions or concerns or send a [employer] message. You do not need a follow up if you do not have any problems or concerns. Test Results: Test results from this visit will be discussed in further detail at your follow- up appointment, if applicable. Discharge Plan Admission Attending Provider: Diamante Carmichael Primary Care Provider: Diamante Abreu Discharge Orders/Prescriptions Prescriptions: No Action escitalopram oxalate [Lexapro] 20 mg Tablet 20 mg PO QHS Referrals / Follow Up: Diamante Abreu PA [Primary Care Provider] - Disposition Disposition (needs filled in before D/C Order can be placed): Home, Self Care
--- NOTE | 2023-01-01 09:25 | FALS_PTH ---
PATIENT: JODY LUX [place] [facility] [id number] AGE/SX: 32/F ROOM: RE01/01/[address]: Dr. Diamante Carmichael MD : 1990 BED: DIS: 01/01/2023 SPEC #: [id number] RECD: 01/01/23 11:25 STATUS: HERMINIO REQ #: [id number] GLORIA: 01/01/23 09:[address]: Diamante Carmichael DEPT: SURGICAL PATHOLOGY RECD BY: Mare Acuna ENTERED: 01/01/23 11:34 SP TYPE: FALL TUBES OTHR DR: LEA Oswald Tissues: Fallopian tube Procedures: Surgery Specimen Level II HEADER OPERATION: Laparoscopic salpingectomy PRE-OP DIAGNOSIS: Sterilization TISSUE SUBMITTED: Bilateral fallopian tubes MICROSCOPIC DIAGNOSIS Bilateral fallopian tubes, salpingectomy: Bilateral fallopian tubes, no pathologic diagnosis. SJ:thiago 01/04/2023 MICROSCOPIC DESCRIPTION Slides are reviewed. GROSS DESCRIPTION Received in fixative is one container labeled with the patient's name and designated bilateral fallopian tubes. The specimen consists of two fallopian tubes with an average length of 4.5 cm and has an average diameter of 0.6 cm. One fallopian tube has normal fimbriated end and second fallopian tube does not show distinct fimbriated end. No mass lesions are identified. Cinder Dump Crane Operator sections are submitted in two cassettes as follows: 1 - one fallopian tube, 2??the other fallopian tube. / AM:thiago 01/01/2023 TC:4 CPT: 14488 x2
[2023-01-01] MEDS: Bupivacaine 0.25% 30 ML Vial (09:35)
--- NOTE | 2023-01-01 09:59 | PCM.OPRPT ---
Problems Associated Problem List Diagnoses (1) Consultation for sterilization: Report of Operation Date of Procedure: 01/01/23 Pre-Operative Diagnosis: sterilizatino request Post-Operative Diagnosis: same Surgery/Procedure Performed:: laparoscopic bilateral salpingectomy Description of Surgical Findings:: normal cervix and vagina, normal uterus , tubes and ovaries Surgeon: Diamante Carmichael power originator: None Type of Anesthesia: General Anesthesiologist: Levar Elias Special Medications: none Specimen's removed: bilateral fallopian tubes Drains: none Estimated Blood Loss (mL): 10 Fluids Replaced: 1000 mL Description of Procedure: The patient was taken to the operating room where she was prepped and draped in the dorsolithotomy position. A weighted speculum was placed in the vagina and the anterior lip of the cervix was grasped with a tenaculum. The Ingrid uterine manipulator was placed and the remainder of the instruments were removed from the vagina. Attention was turned to the abdomen. All port sites were infiltrated with 0.5% Marcaine before skin incisions were made. A 5 mm intraumbilical incision was made. The anterior abdominal wall was tented up with 2 towel clamps while a 5 mm blade less trocar and sleeve were directly inserted. Intraperitoneal placement was confirmed with the laparoscope. The pneumoperitoneum was created and the underlying abdominal contents were intact. The patient was placed in Trendelenburg. Right and left lower quadrant ports were placed under direct visualization lateral to the inferior epigastric vessels. The bowel was swept away and the above findings were noted. The Enseal device was used to clamp seal and transect the antimesenteric portions of the right tube to the cornual insertion of the uterus. The tube was amputated from the uterus and the pedicles were all confirmed to be hemostatic. The same procedure was performed on the contralateral side. The specimens were brought out through a 5 mm port. There was approximately a 2 x 1 cm area of omental adhesions near the umbilicus. These were taken down with the Enseal without difficulty. The pedicles were again examined and found to be hemostatic. The lateral ports were removed under direct visualization and no active bleeding was noted. The pneumoperitoneum was released. The skin incisions were closed with skin glue. The vaginal instruments were removed and the vaginal sweep was completed by me. The procedure was performed by me with assistance. All sponge and needle counts were correct and the patient was taken to the recovery room in stable condition. Grafts/Implants Used: none Procedure Start Time: 09:30 Procedure Stop Time: 09:49 Complications none Admit VTE Documentation VTE Present on Admission: No VTE Mechan Device Prophylaxis: SCD's VTE Pharm Prophylaxis ordered?: No Reason prophylaxis not ordered:: Treatment Not Indicated
== END 2023-01-01 11:40 | disposition home or self-care (01) ==
LOC: SDC 08:04 → AC 08:05
PROVIDERS: Referring Provider Obstetrics & Gynecology; Visit Provider Obstetrics & Gynecology
PROC: (CPT 58661; principal; 2023-01-01 09:10)
DX: Z30.2 Encounter for sterilization (principal); F17.290 Nicotine dependence, other tobacco product, uncomplicated; F41.9 Anxiety disorder, unspecified; Z79.899 Other long term (current) drug therapy
CPT/HCPCS: 58661; 00840; 81025; 85027; 86850; 86900; 86901; 88302; J7120; C1760; J2405

== ENCOUNTER 2024-08-25 07:31 | Day surgery (SDC) | payer MEDICAID, SELFPAY ==
--- NOTE | 2024-08-04 15:32 | PCM.HP.BLA ---
History and Physical Date of Admission: 08/25/24 HPI: The patient is a 33 year old female presenting for pre-operative visit. She is scheduled for TVH , for adenomyosis, menorrhagia with irregular cycle and arcuate uterus on 08/25/23. Procedure discussed along with risks, benefits and complications. Other alternatives discussed for management. Consent form signed? Yes. PAST MEDICAL HISTORY PAST MEDICAL HISTORY Diagnosis Date ? Abnormal glandular Papanicolaou smear of cervix ? Adenomyosis ? Anemia ? Appendicitis, acute 06/23/2011 ? ASCUS of cervix with negative high risk HPV 04/28/2024 ? Kidney stones 2019 PAST SURGICAL HISTORY PAST SURGICAL HISTORY Procedure Laterality Date ? APPENDECTOMY 06/23/2011 ? CERVIX UTERI CONIZA LP ELCTRO EXCI ? DELIVERY ONLY 02/18/2022 LTCS ? COLONOSCOPY SCREENING 06/22/2024 one bx- benign ? EGD W/O BRSH SPEC VARICIES INJ 06/22/2024 ? ERCP DESTRUCTION/LITHOTRIPSY CALCULI ANY METHOD 2019 ? LAPAROSCOPY W/RMVL ADNEXAL STRUCTURES Bilateral 01/01/2023 salpingectomy for sterilization ? PAST SURGICAL HISTORY OF 05/2020 kidney surgeries-stent placed/taken out CURRENT MEDICATIONS Current Outpatient Medications Medication Sig Dispense Refill ? norethindrone (AYGESTIN) 5 mg tablet Take 1 tablet TID until bleeding stops, the BID x 3 days, the daily x 3 days. 35 tablet 0 ? norethindrone acetate (AYGESTIN ORAL) Take by mouth. No current facility-administered medications for this visit. ALLERGIES: Patient has no known allergies. PERSONAL HISTORY: SOCIAL HISTORY Social History Tobacco Use ? Smoking status: Never ? Smokeless tobacco: Never Vaping Use ? Vaping status: current everyday user ? Quit date: 06/15/2021 ? Substances: Nicotine ? Devices: Disposable, Pre-filled or refillable cartridge Substance Use Topics ? Alcohol use: No ? Drug use: Yes Types: Marijuana Comment: Marijuana FAMILY HISTORY: FAMILY HISTORY FAMILY HISTORY Problem Relation Age of Onset ? other (mva) Mother ? No Known Problems Father ? other (Charcot Valerie Tooth Disease) Sister ? No Known Problems Brother ? Osteoporosis Maternal Grandmother ? No Known Problems Maternal Grandfather ? Cancer Paternal Grandmother skin cancer ? Heart Paternal Grandmother ? Lung Cancer Paternal Grandmother ? other (positive MTHFR) Paternal Grandmother ? COPD Paternal Grandfather ? No Known Problems Daughter ? No Known Problems Daughter ? No Known Problems Son REVIEW OF SYMPTOMS: GENERAL: denies fevers or chills ENDOCRINOLOGY: has not been on steroids Cardiology : denies palpitations or chest pain Respiratory: denies SOB or cough Hematology: denies history of prolonged bleeding or easy bruising or VTE Allergy: Denies history of personal or family history of allergy to anesthesia PHYSICAL EXAMINATION: VITALS: Blood pressure 96/68, pulse 88, resp. rate 16, height 174 cm (5' 8.5), weight 76.7 kg (169 lb), last menstrual period 06/22/2024, SpO2 98%. GENERAL: The patient is well nourished, well hydrated in no acute distress. , The patient is oriented to time, place, and person. NECK: Supple. No lynphadenopathy, normal thyroid, no thyromegaly. LUNGS: Clear to auscultation bilaterally. no wheezes, rhonchi or rales HEART: Regular rate and rhythm, Normal heart sounds, and No murmurs or gallops PELVIC US 03/14/24 Impression The contour of the uterus and the endometrial cavity were evaluated with 3-D imaging. Findings are suggestive of arcuate uterus. The uterus is anteverted and measures 78 mm x 57 mm x 76 mm. The myometrium is heterogeneous but no obvious fibroids are observed. This finding is suggestive of adenomyosis. The endometrial thickness is 4.8 mm. There is a small amount of endometrial fluid. The right ovary measures 30 mm x 20 mm x 23 mm. The left ovary measures 41 mm x 33 mm x 17 mm and contains a 19 mm x 15 mm x 10 mm hemorrhagic cyst with reticular pattern/clot. There is free fluid visualized. Technique: Three dimensional imaging was created on a dedicated stand-alone 3D workstation with images created and archived, and supervised and reviewed by the interpreting physician utilizing images from a US Scan performed on 03/14/24. IMPRESSION: Adenomyosis, menorrhagia with irregular cycle, arcuate uterus PLAN: The risks/benefits/alternatives and personal involved for the planned total vaginal hysterectomy, possible cystoscopy were reviewed with the patient. Her questions were answered to her satisfaction and she desires to proceed. Consent was signed. I reviewed with her postop instructions and expectations. I have reviewed and updated past medical and surgical history, medications and allergies Assessment & Plan Assessment/Plan (1) Adenomyosis: (2) Menorrhagia with irregular cycle: (3) Arcuate uterus:
[2024-08-12 11:43] LABS: Mean Corp Hgb Conc 32.4 g/dL (32-36); Mean Corpuscular Hgb 28.8 pg (27.0-32.0); Mean Corpuscular Volume 88.9 fL (81-99); Mean Platelet Vol. 12.6 fl (6.2-12.0); Platelet Count 216 K/mm3 (150-450); RBC Distribution Width CV 12.3 % (11.6-14.6); RBC Distribution Width SD 39.8 fl (35.1-43.9); Red Blood Count 4.16 M/mm3 (4.2-5.4); White Blood Count 4.7 K/mm3 (4.4-11.0)
[2024-08-12 12:08] LABS: Magnesium 2.1 mg/dL (1.6-2.6)
[2024-08-25] VITALS (15 sets, daily range): BP systolic 122–149; BP diastolic 71–97; PULSE 59–77; RESP 15–18; TEMP 36.1–37.4; O2SAT 99–100; BMI 25.7
[2024-08-25 08:14] LABS: Internal QC Validated? YES +Cl - CLEAR BKGD; Pregnancy, Urine Negative Negative
[2024-08-25] MEDS: Lactated Ringers 1,000 ML 40 ML IV ×2 (08:20→12:59)
[2024-08-25] MEDS: Magnesium 1 GM over 15 mins IV (08:20)
[2024-08-25] MEDS: Celecoxib 200 MG Capsule 400 MG PO (08:21)
[2024-08-25] MEDS: Phenazopyridine 95 MG Tablet 190 MG PO (08:21)
[2024-08-25] MEDS: Acetaminophen 500 MG Tablet 1000 MG PO (08:21)
[2024-08-25] MEDS: Gabapentin 600 MG Tablet PO (08:22)
[2024-08-25] MEDS: Scopolamine 1mg/72hr Patch 1 PATCH TD (08:23)
[2024-08-25] MEDS: Enoxaparin 40 MG/0.4 ML Syringe SC (08:23)
--- NOTE | 2024-08-25 08:48 | PRE.ANES_ITS ---
ASA Classification* ASA Classification ASA Classification: 2 Assessment & Plan Anesthesia* Anesthesia Assessment Anesthesia Assessment: Discussed sedation and/or anesthesia options, risks, benefits, and alternatives with patient/parents/legal guardian/POA. Questions invited. The patient/parents/legal guardian/POA seems to understand and agrees to proceed with anesthesia plan. Reviewed the physical assessment, medical history, allergy history and patient home medications list prior to surgery/procedure/anesthetic and documented any changes. Performed airway and anesthesia risk assessments. Anesthesia Type Anesthesia Type: General History Source History Obtained from:: Patient and Chart Anesthesia Focused Assessment* Temperature: 99.4 F Pulse Rate: 71 Blood Pressure: 125/72 Respiratory Rate: 16 Pulse Ox: 99 Oxygen Delivery Method: Room Air Airway Assessment Mouth opens: >3 cm Mallampati Score: I Teeth Condition: Chipped/Broken (Tooth #26 is a small chip.) Neck Range of motion (ROM): Full ROM Focused Labs Anesthesia Preop lab: CBC WBC 4.7 K/mm3 (4.4-11.0) 08/12/24 11:26 RBC 4.16 M/mm3 (4.2-5.4) L 08/12/24 11:26 Hgb 12.0 g/dL (12.0-15.0) 08/12/24 11:26 Hct 37.0 % (37-47) 08/12/24 11:26 Plt Count 216 K/mm3 (150-450) 08/12/24 11:26 CHEMISTRY Potassium 3.7 mmol/L (3.5-5.1) 05/31/20 12:40 Sodium 143 mmol/L (136-145) 05/31/20 12:40 Magnesium 2.1 mg/dL (1.6-2.6) 08/12/24 11:26 BUN 11 mg/dL (7-18) 05/31/20 12:40 Creatinine 1.25 mg/dL (0.55-1.02) H 05/31/20 12:40 Glucose 86 mg/dL (74-106) 05/31/20 12:40 COAG Urine Test Negative Negative 08/25/24 08:00 Pre-Assessment Diagnosis/Proposed Procedure Planned Operative Procedure(s): ERAS, total vaginal hysterectomy, possible cystoscopy Anesthesia History Anesthesia History - corporate relations manager: Anesthesia History - corporate relations manager Hx Hospitalization No 08/11/24 09:56 Any Problems With Anesthesia No 08/11/24 09:56 Cholinesterase deficiency No 08/11/24 09:56 You/Your Family Experience No 08/11/24 09:56 fever (hyperthermia) with Relationship Recent Exposure to Contagious No 08/25/24 08:01 Disease Does patient have nerve No 08/11/24 09:56 stimulator Patient instructed to have device shut off --Does patient have Pacemaker No 08/25/24 08:01 or ICD? When Was Last Pacemaker Check QUESTION #4 FULL TEXT: You/Your Family Experience fever (hyperthermia) with Anesthesia Last Oral Intake Last Oral intake: Last Oral Intake NPO since 05:30 08/25/24 08:01 Meds taken in AM with sips of Yes 08/25/24 08:01 water? Meds patient instructed to take am of surgery Any additional information?: Yes NPO since: 05:30 (Patient preop Ensure at 5:30 AM.) PONV PONV - corporate relations manager: PONV - corporate relations manager Female Yes 08/11/24 09:56 HX of Motion Sickness No 08/11/24 09:56 HX of N/V After Surgery No 08/11/24 09:56 Non-Smoker No 08/11/24 09:56 Duration of Surgery greater No 08/11/24 09:56 than 60 minutes Number of Risk Factors 1 08/11/24 09:56 PONV Score Low Risk 08/11/24 09:56 Height & Weight Height & Weight: Anesthesia: Height & Weight Height 5 ft 9 in 08/25/24 08:01 Weight: 79 kg 08/25/24 08:01 Body Mass Index (BMI) 25.7 08/25/24 08:01 Respiratory Assessment Respiratory Assessment - corporate relations manager: Respiratory Tract Infection Hx - corporate relations manager Hx Respiratory Tract Infection No 08/11/24 09:56 STOP Sleep Apnea STOP Sleep Apnea - corporate relations manager: STOP Sleep Apnea - corporate relations manager Hx Hypertension No 08/11/24 09:56 Hx Sleep Apnea No 08/11/24 09:56 CPAP No 01/01/23 10:09 BIPAP Do you snore loudly (louder No 08/11/24 09:56 than talking or can be heard Do you often feel tired/ No 08/11/24 09:56 fatigued/ sleepy during daytime? Has anyone observed you stop No 08/11/24 09:56 breathing during sleep? STOP Results Negative 08/11/24 09:56 QUESTION #5 FULL TEXT : Do you snore loudly (louder than talking or can be heard through closed doors)? 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 Specify any problems Hx of Preganancy in last 3 No 08/11/24 09:56 Months Nurse Filling Out Transfusion VLEHMAN 08/11/24 09:56 & Questions: Date: 08/11/24 08/11/24 09:56 Time: 10:04 08/11/24 09:56 Patient unable to answer at this time (ie. confused, unrespo /Reproduction History /Reproductive History - corporate relations manager: /Reproductive Hx- corporate relations manager Hx Now No 08/11/24 09:56 Gestational Age (in weeks): EDC: Hx Hx Para Hx Section SAB No 08/11/24 09:56 Active Medications Active Medications: Current Medications Generic Name Dose Route Start Last Admin Trade Name Freq PRN Reason Stop Dose Admin Lactated Ringer's 1,000 mls @ 40 mls/hr 08/25/24 07:30 08/25/24 08:20 IV 40 mls/hr .Q25H EDVIN Administration Lactated Ringer's 1,000 mls @ 40 mls/hr 08/25/24 07:30 IV .Q25H EDVIN Insulin Human Lispro 0 unit 08/25/24 07:30 Insulin Lispro 100 Unit/Ml Insuln.Pen SC 08/25/24 13:00 Q4H PRN PRN BG >/= 180, SEE PROTOCOL Protocol PFSH Medical History History of renal disease Smoker History of kidney stones Wears glasses Anxiety Marijuana use Low iron Shortness of breath on exertion Vapes nicotine containing substance History of edema delivery delivered HPV (human papilloma virus) infection macrosomia Left renal stone Home Medications ?Medication ?Instructions ?Recorded ?Last Taken ?Type norethindrone acetate 5 mg tablet 15 mg PO DAILY 08/11/24 Unknown History Allergy/AdvReac Type Severity Reaction Status Date / Time No Known Allergies Allergy Verified 08/25/24 08:00 Surgical History History of esophagogastroduodenoscopy (EGD) History of colonoscopy History of History of cystoscopy History of appendectomy History of gynecologic surgery Social History Smoking Status: Current every day smoker tobacco type: e-cigarettes Review of Systems (Anesthesia) ROS Narrative System reviewed and no additional complaints, except as documented.
[2024-08-25 08:57] LABS: Bedside Glucose 88 mg/dL (74-106)
[2024-08-25] MEDS: Cefazolin 2 GM in Syringe 10 ML IV (09:20)
[2024-08-25] MEDS: dexAMETHasone 4 MG/ML Vial 8 MG IV (09:25)
--- NOTE | 2024-08-25 09:25 | HYST_PTH ---
PATIENT: JODY LUX LOC: [facility] – [place] U#:[id number] AGE/SX: 33/F ROOM: RE08/25/[address]: Dr. Diamante Carmichael MD : 1990 BED: DIS: 08/25/2024 SPEC #: [id number] RECD: 08/25/24 10:41 STATUS: HERMINIO REDenise #: [id number] GLORIA: 08/25/24 09:[address]: Diamante Carmichael DEPT: SURGICAL PATHOLOGY RECD BY: Mare Acuna ENTERED: 08/25/24 11:46 SP TYPE: HYSTERECT OTHR DR: LEA Oswald Tissues: Uterus, NOS Procedures: Surgery Specimen Level V HEADER OPERATION: Total vaginal hysterectomy, cystoscopy PRE-OP DIAGNOSIS: Adenomyosis, menorrhagia with irregular cycle, arcuate uterus TISSUE SUBMITTED: Cervix and uterus MICROSCOPIC DIAGNOSIS Uterus, cervix, hysterectomy: Cervix - Mild chronic inflammation. Endometrium - Proliferative endometrium. Myometrium - Focal superficial adenomyosis. . 08/28/2024 MICROSCOPIC DESCRIPTION Slides are reviewed. GROSS DESCRIPTION Received in fixative is one container labeled with the patient's name and designated uterus and cervix. The specimen consists of a hysterectomy specimen consisting of uterus with cervix. The uterus with cervix weighs 118 gm and measures 9.0 x 7.0 x 5.0 cm. The serosal surface is focally ragged and shows numerous indentation acuña. The ectocervical mucosa is unremarkable. The external os is circular in contour. The endocervical canal measures 2.5 cm in length and the endocervical mucosa is orozco glistening and unremarkable. The triangular endometrial cavity measures 4.0 cm in length and 3.0 cm in width. The endometrium is orozco glistening without any mass lesions and measures <0.1 cm in thickness. Sections of the uterine wall does not reveal any mass lesions and measures up to 2.5cm in thickness. Kitchen Manager sections are submitted in six cassettes as follows: 1 - anterior cervix, 2 - posterior cervix, 3 & 4 - anterior uterine wall, 5 & 6 - posterior uterine wall. SJ: 08/25/2024 TC:5 CPT: 01976
[2024-08-25] MEDS: Ondansetron 4 MG/2 ML Vial IV (09:55)
[2024-08-25] MEDS: Lidocaine 1%/Epi 1:200 (30ml) 30 ML AMPUL (09:55)
--- NOTE | 2024-08-25 10:25 | OP.PCM_ITS ---
Problems Associated Problem List Diagnoses (1) Arcuate uterus: (2) Menorrhagia with irregular cycle: (3) Adenomyosis: Operative Report (Standard) Operative Information Date of Procedure: 08/25/24 Pre-Operative Diagnosis: arcuate uterus, abnormal uterine bleeding, adenomyosis Post-Operative Diagnosis: same Surgery/Procedure Performed: [employer] superintendent generating plant: Yes Inspector Floor Sub Assembly: Kathia Stewart Tasks completed by assistant curator: Hemostasis: Clamp and Retracting Additional research study assistant?: No Type of Anesthesia: General RN Documented Start/Stop Times: Operation Date: 08/25/24 09:25 Case Time Into Pre-Op 08/25/24 07:44 Out of Pre-Op 08/25/24 09:13 Anesthesia Start 08/25/24 09:20 Into Room 08/25/24 09:20 Procedure Start 08/25/24 09:38 Procedure End 08/25/24 10:17 Anesthesia End 08/25/24 10:24 Out of Room 08/25/24 10:24 Procedure Start Time: 09:38 Procedure Stop Time: 10:17 Select all DRAINS/GRAFTS/IMPLANTS that apply: None Estimated Blood Loss: 75 Fluids Replaced: 800 Specimen collected: Yes Description of specimen(s) removed: uterus and cervis Description of surgery: The patient was taken to the operating room where she was prepped and draped in the normal sterile fashion in the dorsal lithotomy position. A weighted speculum was placed in the vagina and the anterior lip of the cervix was grasped with a Paty clamp. The vaginal epithelium was infiltrated circumferentially around the cervix with 1% Xylocaine solution. An incision was made across the anterior cervix from 3-9 o'clock with a scalpel and the vaginal epithelium was dissected back with blunt and sharp dissection. The anterior colpotomy incision was made sharply. Entry into the anterior cul-de-sac was confirmed by visualization of the uterine fundus and bowel behind the uterus. The uterosacral ligaments were clamped with Primo clamps transected and suture ligated on both sides and excellent hemostasis of the pedicles was noted. The cardinal ligaments were clamped transected and suture ligated. The remainder of the cardinal ligament with the uterine arteries was clamped transected and suture ligated. Care was taken to make sure the visceral peritoneum was contained within the pedicle. The uterus was flipped out so the fundus came out through the anterior colpotomy incision. The utero-ovarian ligaments were clamped, transected and suture-ligated. The uterosacral ligaments and the posterior cuff were clamped with curved Steff clamped, transected and suture- ligated and the uterus and cervix were brought out through the vaginal incision. There was a gap between the uterosacral ligament pedicles and this was run with a 2-0 Vicryl suture to tack the posterior peritoneum to the vaginal cuff. There is a bleeding pedicle on the left side and this was clamped with a Mary clamp and suture-ligated and hemostasis was noted. The vaginal cuff was then reapproximated horizontally with interrupted 0 Vicryl [id number] sutures. The vaginal cuff was hemostatic and excellent support was noted. The Oneil catheter was removed the vaginal sweep was completed by me. All sponge lap and needle counts were correct. Patient was awakened and taken to her recovery room in stable condition. No qualified residents were available for the procedure. Surgical Findings: boggy uterus, normal cervix and vagina, normal ovaries, absent tubes Complications Complications: No Admit VTE Documentation VTE Present on Admission: No VTE Mechan Device Prophylaxis: SCD's VTE Pharm Prophylaxis ordered?: Yes
[2024-08-25] MEDS: Lactated Ringers @ 40 MLS/HR 40 ML IV (10:59)
--- NOTE | 2024-08-25 11:00 | PCM.POST.ANE ---
Anesthesia: Postop Eval I Current Vital Signs Temperature: 97.1 F Pulse Rate: 77 Blood Pressure: 122/71 Respiratory Rate: 16 Pulse Ox: 100 Oxygen Delivery Method: Nasal Cannula Oxygen Flow Rate (L/min): 2 Assessment Airway patent: Yes Spontaneous unlabored respirations: Yes Mental status: Awake nausea: No Vomiting: No Anesthesia Complication: No Fluid Hydration Crystalloid volume administer (ml): 800 Total IV fluid infused: 800 Progress Note Anesthesia document: Postop Eval 1 completed: Yes
--- NOTE | 2024-08-25 11:07 | POSTOPAN2_ITS ---
Anesthesia Postop Eval I Sum Postop Eval Completion status Anesthesia document: Postop Eval 1 completed: Yes Anesthesia Postop Eval I Summary Anesthesia Postop Eval I Summary: Anesthesia Postop Eval I: Assessment Summary Airway patent Yes 08/25/24 11:01 [email or web address] [email or web address] Spontaneous unlabored Yes 08/25/24 11:01 [email or web address] [email or web address] respirations Mental status Awake 08/25/24 11:01 [email or web address] nausea No 08/25/24 11:01 [email or web address] Vomiting No 08/25/24 11:01 [email or web address] [email or web address] Anesthesia Postop Eval I: Fluid Summary Crystalloid volume administer 800 08/25/24 11:01 [email or web address] [email or web address] (ml) Colloids volume administered ( ml) Blood Product volume administered (ml) Total IV fluid infused 800 08/25/24 11:01 [email or web address] [email or web address] Anesthesia Postop Eval I: Summary Notes Anesthesia Complication No 08/25/24 11:01 [email or web address] Anesthesia Complication Comment: Post-operative progress note Anesthesia: Postop Eval II Evaluation Mental status: Awake and Calm Pain Level: 3 nausea: No Vomiting: No Complications Anesthesia Complication: No
--- NOTE | 2024-08-25 11:07 | PCM.POSTANE2 ---
Anesthesia Postop Eval I Sum Postop Eval Completion status Anesthesia document: Postop Eval 1 completed: Yes Anesthesia Postop Eval I Summary Anesthesia Postop Eval I Summary: Anesthesia Postop Eval I: Assessment Summary Airway patent Yes 08/25/24 11:01 CONTRACT [email or web address] Spontaneous unlabored Yes 08/25/24 11:01 CONTRACT [email or web address] respirations Mental status Awake 08/25/24 11:01 CONTRACT [email or web address] nausea No 08/25/24 11:01 CONTRACT [email or web address] Vomiting No 08/25/24 11:01 CONTRACT [email or web address] Anesthesia Postop Eval I: Fluid Summary Crystalloid volume administer 800 08/25/24 11:01 CONTRACT [email or web address] (ml) Colloids volume administered ( ml) Blood Product volume administered (ml) Total IV fluid infused 800 08/25/24 11:01 CONTRACT [email or web address] Anesthesia Postop Eval I: Summary Notes Anesthesia Complication No 08/25/24 11:01 [email or web address] Anesthesia Complication Comment: Post-operative progress note Anesthesia: Postop Eval II Evaluation Mental status: Awake and Calm Pain Level: 3 nausea: No Vomiting: No Complications Anesthesia Complication: No
[2024-08-25] MEDS: oxyCODONE 5 MG Tablet PO (12:42)
--- NOTE | 2024-08-25 12:48 | PCM.DC ---
Discharge Instructions Diet Discharge Diet: Light diet - advance as tolerated DC O2, CPAP, BIPAP needs Home O2 Discharge instructions: No Dressing / Incision May shower in (days): 1 May resume sexual activity in: 6-8 weeks and - (Nothing in your vagina for 6 weeks. No vaginal or anal intercourse for 6-8 weeks) Lifting Restrictions: 15 lbs x 6 weeks Dressing / Incision Call your doctor if your incision/area has: Sudden Increased Bleeding and Foul Smelling Discharge Call your doctor if you observe: Fever of 101 or Higher, Using more than 1 pad per hour and Uncontrolled pain Cleanse incision/area with: Soap & Water and - Follow Up Care Please Follow Up With: Diamante Carmichael MD When: With my office in 1-2 and 6 weeks or as needed. [phone] call or send a [employer] message for questions Test Results: Test results from this visit will be discussed in further detail at your follow-up appointment, if applicable. Discharge Plan Admission Primary Reason for Your Visit: Vaginal hysterectomy Attending Provider: Diamante Carmichael Primary Care Provider: Diamante Abreu Instructions Print Language: Citizen Of [place] Discharge Orders/Prescriptions Prescriptions: New acetaminophen [Acetaminophen Extra Strength] 500 mg tablet 1,000 mg PO Q6H PRN (Reason: fever or pain) 20 Days Qty: 60 0RF ibuprofen 600 mg tablet 600 mg PO Q6H PRN (Reason: Pain) 20 Days Qty: 60 1RF oxycodone 5 mg tablet 5 mg PO Q8H PRN (Reason: severe pain) 5 Days Qty: 10 0RF Discontinued norethindrone acetate 5 mg tablet 15 mg PO DAILY Patient Comments: TAPERING DOSE BASED ON BLEEDING Referrals / Follow Up: Diamante Abreu PA [Primary Care Provider] - Disposition Disposition (needs filled in before D/C Order can be placed): Home, Self Care
[2024-08-25] MEDS: HYDROmorphone 1 MG/ML Syringe 2 MG IV (12:59)
--- NOTE | 2024-08-25 16:15 | SUR.PHASEII ---
Pt and SO in room having a loud argument, nursing staff to room to see what was going on, pt was requesting to leave, pt at this point she has not been able to urinate. paged Dr. Carmichael to see if pt was able to leave. She asked if we could encourage pt to attempt to urinated prior to leaving. If she is unable to urinated still, inform pt of risk of having to come back to the ER if unable to urinate. Pt did go to the restroom and was successful.
== END 2024-08-25 16:15 | disposition home or self-care (01) ==
LOC: SDC 07:33 → AC 07:35
PROVIDERS: Referring Provider Obstetrics & Gynecology; Visit Provider Obstetrics & Gynecology
PROC: (CPT 58260; principal; 2024-08-25 09:05)
DX: N92.1 Excessive and frequent menstruation with irregular cycle (principal); N93.9 Abnormal uterine and vaginal bleeding, unspecified; N80.03 Adenomyosis of the uterus; Q51.810 Arcuate uterus; Z90.722 Acquired absence of ovaries, bilateral; N83.202 Unspecified ovarian cyst, left side; N72 Inflammatory disease of cervix uteri; Z87.442 Personal history of urinary calculi; F17.290 Nicotine dependence, other tobacco product, uncomplicated
CPT/HCPCS: 58260; 00944; 36415; 81025; 82962; 83735; 85027; 86850; 86900; 86901; 88307; J2405; J3475